=== PATIENT | female | born 1955 | race Caucasian/White ===

== ENCOUNTER 2025-06-08 17:01 | Inpatient (IN) | payer OTHER ==
[~2025-06-08] VITALS: Ht 182.9 cm; Wt 98.8 kg
--- NOTE | 2025-06-08 17:21 | ED.PDOC ---
History of present illness HPI Comments 70y male to female transgender individual presents to the ED via EMS for chief complaint of altered mental status and hyperglycemia. EMS notes pt lives with family and found pt laying on the floor unresponsive for unknown time and called EMS to the scene. EMS arrived on scene and noted pt was in Kussmaul respirations and responsive only to deep sternal rub. EMS checked vitals and Accu check with noted pt at 88% on room air and pt was placed on 02 . EMS did accu check and states it read HIGH x 2. EMS established IV and pt was given IV fluids en route to the ED. Pt now in the ED, noted to be sleeping with noted Kussmaul respirations, not responding verbally and not following commands. Pt has noted history of DM. Pt has noted vitals in the ED of heart rate of 120, RR 30 but otherwise stable vitals including 02 sat of 97% on room air, BP 105/61 and temp of 98.7 F. 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 Allergies: Coded Allergies: Ibuprofen (Verified Allergy, Unknown, 06/08/25) Information Source: Emergency Med Personnel, Past Medical Record Mode of Arrival: EMS Past Medical History PAST MEDICAL HISTORY: DM, High Lipids Past Medical History (Other): Bladder cancer status post chemotherapy, unknown if in remission Surgical History (Other): Spine surgery, male to female transgender surgery [employer]ICE [employer]OCKEY History: Unknown Family History Family History: Unknown Social History Smoker: Non-Smoker Alcohol: Denies ETOH Use Drugs: Denies Drug Use Lives In: Home Constitutional: denies: chills, diaphoresis, fatigue, fever, malaise, sweats, weakness, others EENTM: denies: blurred vision, double vision, ear bleeding, ear discharge, ear drainage, ear pain, ear ringing, eye pain, eye redness, hearing loss, mouth pain, mouth swelling, nasal discharge, nose bleeding, nose congestion, nose pain, photophobia, tearing, throat pain, throat swelling, voice changes, others Respiratory: denies: cough, hemoptysis, orthopnea, SOB at rest, shortness of breath, SOB with excertion, stridor, wheezing, others Cardiovascular: denies: chest pain, dizzy spells, diaphoresis, Dyspnea on exertion, edema, irregular heart beat, left arm pain, lightheadedness, palpitations, PND, syncope, others Gastrointestinal: denies: abdomen distended, abdominal pain, blood streaked bowels, constipated, diarrhea, dysphagia, difficulty swallowing, hematemesis, melena, nausea, poor appetite, poor fluid intake, rectal bleeding, rectal pain, vomiting, others Genitourinary: denies: abnormal vagina bleeding, burning, dyspareunia, dysuria, flank pain, frequency, hematuria, incontinence, pain, , vagina dischar ge, urgency, others Neurological: denies: dizziness, fainting, headache, left sided numbness, left sided weakness, numbness, paresthesia, pre-existing deficit, right sided numbness, right sided weakness, seizure, speech problems, tingling, tremors, weakness, others Musculoskeletal: denies: back pain, gout, joint pain, joint swelling, muscle pain, muscle stiffness, neck pain, others Integumetry: denies: bruises, change in color, change in hair/nails, dryness, laceration, lesions, lumps, rash, wounds, others Allergic/Immunocompromised: denies: Difficulty Healing, Frequent Infections, Hives, Itching, others Hematologic/Lymphatic: denies: anemia, blood clots, easy bleeding, easy bruising, swollen glands, others Endocrine: denies: excessive hunger, excessive sweating, excessive thirst, excessive urination, flushing, intolerance to cold, intolerance to heat, unexplained weight gain, unexplained weight loss, others Psychiatric: denies: anxiety, bipolar disorder, depression, hopeless, panic disorder, schizophrenia, sleepless, suicidal, others Unable to Obtain due to: Altered Mental Status (Comprehensive systems review unobtainable due to patient's current altered mental status and absence of family) Physical Exam General Appearance: Other (Lethargic) HEENT: Other (Pupils reactive to light and symmetric, dry mucous membranes) Neck: Full Range of Motion, Normal Inspection, Supple Respiratory: Lungs Clear, Other (Kussmaul respirations) Cardiovascular: No Edema, No JVD, Tachycardia Breast Exam: Deferred Gastrointestinal: Non Tender, Soft Genitalia: Deferred Pelvic: Deferred Rectal: Deferred Extremities: Normal inspection, Normal range of motion, Non-tender, No pedal edema Neurologic: Other (Withdraws from painful stimulus, does not open eyes, does not follow commands or verbalize) Cerebellar Function: NOT DONE Reflexes: NOT DONE Skin: Dry, Normal Color, Warm Lymphatic: NOT DONE Was a procedure done? Was a procedure done?: No EKG EKG : Comments Sinus rhythm, rate 98, normal KS and QRS intervals, QTC prolonged at 523, occasional PACs, normal axis, normal QRS, nonspecific T change. Differential Diagnosis (DM) Differential Diagnosis: Dehydration, Diabetic Coma, DKA, Electrolyte Abnormality, Encephalopathy, Hyperglycemia, Hyperosmolar State, UTI Other Differential Diagnosis Ca, TIA, intracranial hemorrhage, C-spine injury, among others X-Ray, Labs, Meds, VS Vital Signs Date Time Temp Pulse Resp B/P (MAP) Pulse Ox O2 Delivery O2 Flow Rate FiO2 06/08/25 19:11 20 97 Room Air* 0 21 06/08/25 18:30 Room Air* 0 21 06/08/25 18:30 98.7 93 21 105/34 (57) 99 98.7 06/08/25 17:45 98.7 84 25 99/35 (56) 97 98.7 06/08/25 17:06 98.7 120 30 105/61 (76) 97 98.7 Lab Test 06/08/25 18:55 06/08/25 18:40 06/08/25 17:53 06/08/25 17:44 Range/Units Troponin I High Sensitivity 1308 *H 984 *H </=34 ng/L Urine Color Light-yellow Yellow Urine Clarity Clear Clear Urine pH 5.0 5.0-9.0 Urine Specific Warner 1.020 1.001-1.035 Urine Protein Trace H Negative Urine Ketones 3+ H Negative Urine Blood 1+ H Negative /uL Urine Nitrite Negative Negative Urine Bilirubin Negative Negative Urine Urobilinogen Normal Negative mg/dL Urine Leukocyte Esterase Negative Negative /uL Urine RBC 1 0 - 4 /hpf Urine Microscopic WBC 1 0-5 /HPF Urine Squamous Epithelial Cells Few <5 /hpf Urine Bacteria None seen None Seen /hpf Urine Hyaline Casts Few 0 - 2 /lpf Urine Mucus Few None Seen Urine Glucose 4+ H Normal mg/dL White Blood Count 26.7 H 4.4-10.8 10^3/uL Red Blood Count 4.45 4.0-5.20 10^6/uL Hemoglobin 13.3 12.2-16.2 g/dL Hematocrit 47.5 H 36.0-46.0 % Mean Corpuscular Volume 106.8 H 80.0-100.0 fL Mean Corpuscular Hemoglobin 30.0 28.0-32.0 pg Mean Corpuscular Hemoglobin Concent 28.1 L 32.0-36.0 g/dL Red Cell Distribution Width 15.9 H 11.8-14.3 % Platelet Count 329 140-450 10^3/uL Mean Platelet Volume 10.2 6.9-10.8 fL Neutrophils (%) (Auto) 37.0-80.0 % Lymphocytes (%) (Auto) 10.0-50.0 % Monocytes (%) (Auto) 0.0-12.0 % Basophils (%) (Auto) 0.0-2.0 % Neutrophils # (Auto) 1.6-8.6 10 ^3/uL Lymphocytes # (Auto) 0.4-5.4 10 ^3/uL Monocytes # (Auto) 0-1.3 10 ^3/uL Differential Total Cells Counted 100.0 100 Neutrophils % (Manual) 70 37.0-80.0 Band Neutrophils % (Manual) 11 Lymphocytes % (Manual) 10 10.0-50.0 Monocytes % (Manual) 9 0-12 Eosinophils % (Manual) 0 0-7 Basophils % (Manual) 0 0.0-2.0 Metamyelocytes % (manual) 0 Myelocytes % (Manual) 0 Promyelocytes % (Manual) 0 Blast Cells % (Manual) 0 Reactive Lymphocytes 0 Platelet Estimate Adequate Anisocytosis (manual) Slight Macrocytosis Moderate Sodium Level 125 L 136-145 mmol/L Potassium Level 7.2 *H 3.5-5.1 mmol/L Chloride Level 87 L 98-107 mmol/L Carbon Dioxide Level < 10 *L 20-31 mmol/L Anion Gap 28.24611 H 5-15 Blood Urea Nitrogen 47 H 9-23 mg/dL Creatinine 3.14 H 0.550-1.02 mg/dL Glomerular Filtration Rate Calc 15 >90 mL/min BUN/Creatinine Ratio 15.0 10.0-20.0 Serum Glucose 1233 *H 74-106 mg/dL Serum Osmolality 376 H 278-298 mOsm/kg Lactic Acid Level 5.5 *H 0.4-2.0 mmol/L Calcium Level 9.1 8.7-10.4 mg/dL Phosphorus Level 15.2 H 2.4-5.1 mg/dL Magnesium Level 2.7 H 1.6-2.6 mg/dL Total Bilirubin 0.2 0.2-1.0 mg/dL Aspartate Amino Transferase (AST) 67 H 13-40 U/L Alanine Aminotransferase (ALT) 68 H 7-40 U/L Alkaline Phosphatase 133 H 46-116 U/L B-Type Natriuretic Peptide 179.92 0-100 pg/mL Total Protein 6.7 5.7-8.2 g/dL Albumin 4.5 3.2-4.8 g/dL Beta-Hydroxybutyric Acid > 4.500 H < 0.4 mmol/L POC Glucose > 600 *H 70-106 mg/dl Test 06/08/25 17:15 Range/Units Blood Gas Specimen Type Arterial Blood Gas Sample Site Right radial Blood Gas Patient Temperature 37.0 Arterial Blood Date Drawn [id number] Arterial Blood pH 6.946 *L 7.350-7.450 Arterial Blood Partial Pressure CO2 < 14.1 *L 32.0-45.0 mmHg Arterial Blood Partial Pressure O2 124.1 H 83.0-108.0 mmHg Arterial Blood Oxygen Saturation 96.8 94.0-98.0 % Arterial Blood Oxyhemoglobin 95.4 94.0-98.0 % Arterial Blood Carboxyhemoglobin 0.8 0.5-1.5 % Arterial Blood Methemoglobin 0.6 0.0-1.5 % Abel Test Modified Blood Gas Total Hemoglobin 13.70 12.0-16.0 g/dL Blood Gas Modality Room air FiO2 % 21.0 Blood Gas Critical Value Read Back Yes Blood Gas Notified Whom xiomara Doshi md Blood Gas Notified Time [id number] Blood Gas Notified By haylee Scanlon rrt Current Medications Medications (Trade) Dose Ordered Sig/Elizabeth Route Start Time Stop Time Status Last Admin Insulin Human Regular (InsuLIN R) 10 units ONCE ONCE IV 06/08/25 17:15 06/08/25 17:16 DC 06/08/25 17:45 Sodium Chloride 1,000 ml @ 1,000 mls/hr Q1H ONCE IV 06/08/25 17:15 06/08/25 18:14 DC 06/08/25 17:45 Insulin Human (Reg)/Sodium Chloride 100 ml @ 0.5 mls/hr Q24H IV 06/08/25 17:45 06/08/25 19:05 Diagnostic Test (Pha) (Accu-Chek Comfort Curve T) 1 strip Q90MIN 06/08/25 18:00 06/08/25 18:53 Insulin Glargine (Lantus) 15 units ONCE ONCE SC 06/08/25 17:45 06/08/25 17:46 DC 06/08/25 17:49 Lorazepam (Ativan Inj) 1 mg ONCE ONCE IV 06/08/25 18:15 06/08/25 18:16 DC 06/08/25 18:12 Diphenhydramine HCl (Benadryl Injection) 25 mg ONCE ONCE IV 06/08/25 18:15 06/08/25 18:16 DC 06/08/25 18:12 Calcium Gluconate/ Sodium Chloride 50 ml @ 100 mls/hr Q30M IV 06/08/25 19:00 06/08/25 19:59 06/08/25 19:30 Albuterol (Ventolin Medneb) 20 mg ONCE ONCE NEB 06/08/25 19:00 06/08/25 19:01 DC 06/08/25 19:11 Sodium Bicarbonate 100 ml ONCE ONCE IV 06/08/25 19:00 06/08/25 19:01 DC 06/08/25 19:25 PROCEDURE(s): HWOCT - HEAD WITHOUT CONTRAST REASON: aloc ORDER NUMBER(s): [id number], ACCESSION NUMBER(s): [id number] EXAM: CT HEAD WITHOUT CONTRAST INDICATION: aloc TECHNIQUE: CT of the head without intravenous contrast. Radiation Dose : 1. Head: CT Dose: CTDI volume is 33 mGy. Dose-length product is 1657 mGy* cm The dose indicators for CT are the volume Computed Tomography (CT) Dose Index (CTDIvol) and the Dose Length Product (DLP), and are measured in units of mGy and mGy-cm, respectively. These indicators are not patient dose, but values generated from the CT scanner acquisition factors. The report includes radiation exposure data for exposures received during this examination. COMPARISON: None FINDINGS: There is no evidence of acute intracranial hemorrhage, extra-axial collection, mass effect, midline shift, herniation or hydrocephalus. The ventricles, sulci and cisterns are age appropriate. The umana-white differentiation is intact. Patchy periventricular and subcortical white matter hypoattenuation is nonspecific but may be related to small vessel ischemic disease. The visualized paranasal sinuses and mastoid air cells are clear. The surrounding soft tissues and osseous structures are unremarkable. IMPRESSION: 1. No acute intracranial abnormality. Radiation optimization: All CT scans at this facility use at least one of these dose optimization techniques: automated exposure control mA and/or kV adjustment per patient size (includes targeted exams where dose is matched to clinical indication) or iterative reconstruction. EDURE(s): CS2 - CERVICAL WITHOUT CONTRAST REASON: aloc found down ORDER NUMBER(s): [id number], ACCESSION NUMBER(s): [id number] EXAM: CT CERVICAL WITHOUT CONTRAST INDICATION: aloc found down EXAM DATE: 06/08/2025 05:21 PM COMPARISON: None TECHNIQUE: Multiple axial CT images of the cervical spine were obtained using bone algorithm. Axial and coronal reformatting was done. Bone and soft tissue windows were reviewed. Radiation Dose Information: CT Dose: CTDI volume is 25.59 mGy. Dose-length product is 710.86 mGy*cm Findings: There is no evidence of an acute fracture or spondylolisthesis. The vertebral body heights are well-maintained. The craniocervical junction and dens are intact. No spinal canal stenosis. There is a normal cervical lordosis. The thyroid gland is unremarkable. The lung apices demonstrate no acute abnormality. The paraspinal and neck soft tissues appear within normal limits. C2-3: Normal C3-4: Normal C4-5: Normal C5-6: Normal C6-7: Normal C7-T1: Normal Impression: 1. No evidence of an acute fracture. EDURE(s): CXR1 - CHEST XRAY 1 VIEW REASON: aloc hypoxia ORDER NUMBER(s): [id number], ACCESSION NUMBER(s): [id number] CHEST RADIOGRAPH Indication: aloc hypoxia Technique: Single frontal view of the chest was obtained Comparison: None FINDINGS: Lines and Tubes: None Lungs: No focal consolidation. Pleura: No effusion. No pneumothorax. Cardiomediastinal contours: Unremarkable Bones: No acute osseous abnormality. IMPRESSION: 1. No acute cardiopulmonary disease. HS:Y X-Ray, Labs, Meds, VS Comment 70-year-old male to female transgender individual with a history of diabetes, dyslipidemia and bladder cancer brought in by EMS from home with altered mental status, found to be hyperglycemic Vitals remarkable for heart rate 120, respiratory rate 30 Exam remarkable for lethargy, only withdraws from painful stimulus, tachycardic with Kussmaul respirations Rhythm strip independently interpreted by me: Sinus tach, rate 120, no ectopy. CT head, CT C-spine and chest x-ray unremarkable Labs remarkable for blood gas showing pH 6.946, pCO2 less than 14, CBC showing WBC 26.7, CMP showing sodium 125, potassium 7.2, chloride 87, CO2 less than 10, BUN 47, creatinine 3.14, glucose 1233, lactate 5.5, serial troponins 984 and 1308, beta hydroxybutyrate greater than 4.5 Patient treated with the following in the ED: 1 L 0.9 normal saline IV bolus, insulin 10 units IV, then placed on DKA IV fluid and insulin drip protocol, vancomycin and cefepime IV, sodium bicarb calcium gluconate IV, albuterol 20 mg nebulized, IV heparin per protocol Case discussed with Dr. Moore at [facility], who agreed the patient is not stable for transfer and authorized us to admit the patient here. Authorization [id number] Time of 1ST Reevaluation: 19:47 Reevaluation 1ST: Improved Patient Education/Counseling: Pt Unresponsive Family Education/Counseling: Diagnosis, Treatment SEPSIS Sepsis Screen SEPSIS EXCLUSION NOTE: Sepsis Exclusion Note: Patient presents with SIRS criteria, but the SIRS response is attributed to [DKA, acute renal failure ], not a suspected infection. Sepsis bundle is not initiated at this time, due to this reason. Further management will focus on the treatment of the above condition (s). Physician Orders Blood Culture (06/08/25 17:09) Abg W/ Co-Ox (06/08/25 17:09) Head Without Contrast (06/08/25 17:09) Cervical Without Contrast (06/08/25 17:09) Chest Xray 1 View (06/08/25 17:09) Troponin-I Hs (06/08/25 20:09) Insulin Drip Protocol (06/08/25 ) Sodium Chloride 0.9% (06/08/25 17:45) Sodium Chloride 0.9% (06/08/25 21:45) Sodium Chloride 0.9% (06/08/25 23:45) Insulin Drip 100 Unit/100ml (Myxredlin 1 (06/08/25 17:45) Dextrose 50% Syringe (06/08/25 17:45) Glucose Blood (Accu-Chek Comfort Curve T (06/08/25 18:00) Basic Metabolic Panel (06/08/25 23:31) Basic Metabolic Panel (06/09/25 05:31) Basic Metabolic Panel (06/09/25 11:31) Neurological Assessment (06/08/25 17:31) Vs/Hemodynamics .PER UNIT PROTOCOL (06/08/25 17:31) Insulin Lantus (Glargine) (Lantus) (06/09/25 10:00) Calcium Gluc 1,000mg/50ml-Ns (06/08/25 19:00) Electrocardigram (06/08/25 19:42) Vancomycin 1gm/200ml Pm (06/08/25 19:45) Cefepime 1gm/ 50ml (Maxipime 1gm/50ml) (06/08/25 22:00) Notify Md If Map <65 Or Bp<90 (06/08/25 19:43) If Map<65 Start Vasopressor (06/08/25 19:43) Sepsis Reassesment After Fluid (06/08/25 20:43) Platelet Monitoring (06/08/25 19:49) Heparin Per Standardized Proce (06/08/25 19:49) Discontinue All Im Injections (06/08/25 19:49) Heparin Sodium (Porcine) (06/08/25 20:00) Heparin Drip/D5w 100units/Ml (06/08/25 20:00) Stat Ekg For Chest Pain (06/08/25 19:49) *[facility] (06/08/25 19:50) Vital Signs Date Time Temp Pulse Resp B/P (MAP) Pulse Ox O2 Delivery O2 Flow Rate FiO2 06/08/25 19:11 20 97 Room Air* 0 21 06/08/25 18:30 Room Air* 0 21 06/08/25 18:30 98.7 93 21 105/34 (57) 99 98.7 06/08/25 17:45 98.7 84 25 99/35 (56) 97 98.7 06/08/25 17:06 98.7 120 30 105/61 (76) 97 98.7 Laboratory Tests Test 06/08/25 17:53 Lactic Acid Level 5.5 mmol/L (0.4-2.0) *H White Blood Count 26.7 10^3/uL (4.4-10.8) H Medications Medications Dose Ordered Sig/Elizabeth Route Start Time Stop Time Status Last Admin Dose Admin Albuterol 20 mg ONCE ONCE NEB 06/08/25 19:00 06/08/25 19:01 DC 06/08/25 19:11 Calcium Gluconate/ Sodium Chloride 50 ml @ 100 mls/hr Q30M IV 06/08/25 19:00 06/08/25 19:59 06/08/25 19:30 Diagnostic Test (Pha) 1 strip Q90MIN 06/08/25 18:00 06/08/25 18:53 Diphenhydramine HCl 25 mg ONCE ONCE IV 06/08/25 18:15 06/08/25 18:16 DC 06/08/25 18:12 Insulin Glargine 15 units ONCE ONCE SC 06/08/25 17:45 06/08/25 17:46 DC 06/08/25 17:49 Insulin Human (Reg)/Sodium Chloride 100 ml @ 0.5 mls/hr Q24H IV 06/08/25 17:45 06/08/25 19:05 Insulin Human Regular 10 units ONCE ONCE IV 06/08/25 17:15 06/08/25 17:16 DC 06/08/25 17:45 Lorazepam 1 mg ONCE ONCE IV 06/08/25 18:15 06/08/25 18:16 DC 06/08/25 18:12 Sodium Bicarbonate 100 ml ONCE ONCE IV 06/08/25 19:00 06/08/25 19:01 DC 06/08/25 19:25 Sodium Chloride 1,000 ml @ 1,000 mls/hr Q1H ONCE IV 06/08/25 17:15 06/08/25 18:14 DC 06/08/25 17:45 Departure 1 Departure Time of Disposition: 19:48 Impression: Primary Impression: DKA (diabetic ketoacidosis) Additional Impressions: Acute renal failure Electrolyte imbalance Non-STEMI (non-ST elevated myocardial infarction) Disposition: 09 ADMITTED INPATIENT Admit to: ICU Condition: Critical Critical Care Note Critical Care Time?: Yes (1 hr-critical care time only) Critical care comment: Critical care time including multiple bedside re-evaluations, review of lab and imaging studies, and discussion of the case with the admitting provider. Patient is high risk for neurologic, respiratory, hemodynamic and/or metabolic decompensation. Stability Stability form required: No Heart Score Heart Score: Heart Score Response (Comments) Value History N/A 0 EKG N/A 0 Age N/A 0 Risk Factors N/A 0 Troponin N/A 0 Total 0 I personally scribed for LUIGI DOSHI MD ([facility]) on 06/08/25 at 17:21. Electronically submitted by Jonathan Larry ([facility]). I personally scribed for LUIGI DOSHI MD ([email or web address]) on 06/08/25 at 17:55. Electronically submitted by Jonathan Larry ([facility]). LUIGI DOSHI MD Jun 08, 2025 17:21
[2025-06-08] MEDS: SODIUM CHLORIDE 0.9% 1,000 ML IV ONE (17:45)
[2025-06-08] MEDS: InsuLIN REG 1unit/0.01ml Soln (100units/ml) IV ONE (17:45)
[2025-06-08] MEDS ORDERED: DEXTROSE (50%) 50ML SYRG IV PRN ×3 (17:45→22:45)
[2025-06-08] MEDS: INSULIN LANTUS (GLARGINE) 1 /0.01ml (100units/ml) SC ONE (17:49)
--- NOTE | 2025-06-08 18:04 | DVH ---
EXAM: CT HEAD WITHOUT CONTRAST INDICATION: aloc TECHNIQUE: CT of the head without intravenous contrast. Radiation Dose : 1. Head: CT Dose: CTDI volume is 33 mGy. Dose-length product is 1657 mGy*cm The dose indicators for CT are the volume Computed Tomography (CT) Dose Index (CTDIvol) and the Dose Length Product (DLP), and are measured in units of mGy and mGy-cm, respectively. These indicators are not patient dose, but values generated from the CT scanner acquisition factors. The report includes radiation exposure data for exposures received during this examination. COMPARISON: None FINDINGS: There is no evidence of acute intracranial hemorrhage, extra-axial collection, mass effect, midline s hift, herniation or hydrocephalus. The ventricles, sulci and cisterns are age appropriate. The umana-white differentiation is intact. Patchy periventricular and subcortical white matter hypoattenuation is nonspecific but may be related to small vessel ischemic disease. The visualized paranasal sinuses and mastoid air cells are clear. The surrounding soft tissues and osseous structures are unremarkable. IMPRESSION: 1. No acute intracranial abnormality. Radiation optimization: All CT scans at this facility use at least one of these dose optimization angie hniques: automated exposure control mA and/or kV adjustment per patient size (includes targeted exam s where dose is matched to clinical indication) or iterative reconstruction.
[2025-06-08] MEDS: LORazepam 2MG/ML-1ML VIAL IV ONE (18:12)
[2025-06-08] MEDS: diphenhdrAMINE HCL 50 MG/1 ML VL IV ONE (18:12)
--- NOTE | 2025-06-08 18:13 | DVH ---
CHEST RADIOGRAPH Indication: aloc hypoxia Technique: Single frontal view of the chest was obtained Comparison: None FINDINGS: Lines and Tubes: None Lungs: No focal consolidation. Pleura: No effusion. No pneumothorax. Cardiomediastinal contours: Unremarkable Bones: No acute osseous abnormality. IMPRESSION: 1. No acute cardiopulmonary disease. HS:Y
[2025-06-08 18:20] LABS: Hematocrit 47.5 % (36.0-46.0); Hemoglobin 13.3 g/dL (12.2-16.2); Mean Corpuscular Hemoglobin 30.0 pg (28.0-32.0); Mean Corpuscular Volume 106.8 fL (80.0-100.0)
--- NOTE | 2025-06-08 18:20 | DVH ---
EXAM: CT CERVICAL WITHOUT CONTRAST INDICATION: aloc found down EXAM DATE: 06/08/2025 05:21 PM COMPARISON: None TECHNIQUE: Multiple axial CT images of the cervical spine were obtained using bone algorithm. Axial a nd coronal reformatting was done. Bone and soft tissue windows were reviewed. Radiation Dose Information: CT Dose: CTDI volume is 25.59 mGy. Dose-length product is 710.86 mGy*cm Findings: There is no evidence of an acute fracture or spondylolisthesis. The vertebral body heights are well-m aintained. The craniocervical junction and dens are intact. No spinal canal stenosis. There is a normal cervical lordosis. The thyroid gland is unremarkable. The lung apices demonstrate no acute abnormality. The paraspinal a nd neck soft tissues appear within normal limits. C2-3: Normal C3-4: Normal C4-5: Normal C5-6: Normal C6-7: Normal C7-T1: Normal Impression: 1. No evidence of an acute fracture.
[2025-06-08 18:35] LABS: Magnesium 2.7 mg/dL (1.6-2.6)
[2025-06-08 18:37] LABS: Albumin 4.5 g/dL (3.2-4.8); Anion Gap 28.00001 (5-15); BUN/Creatinine Ratio 15.0 (10.0-20.0); Calcium 9.1 mg/dL (8.7-10.4); Total Protein 6.7 g/dL (5.7-8.2)
[2025-06-08 18:48] LABS: Alanine Aminotransferase 68 U/L (7-40); Alkaline Phosphatase 133 U/L (46-116); Anisocytosis Slight; Bilirubin, Total 0.2 mg/dL (0.2-1.0); Blood Urea Nitrogen 47 mg/dL (9-23); Carbon Dioxide < 10 mmol/L (20-31); Chloride 87 mmol/L (98-107); Glucose 1233 mg/dL (74-106); Lactic Acid w/Reflex 5.5 mmol/L (0.4-2.0); Macrocytosis Moderate; Potassium 7.2 mmol/L (3.5-5.1); Sodium 125 mmol/L (136-145); Total Cells Counted 100.0 (100)
[2025-06-08] MEDS: ACCU-CHEK COMFORT CURVE STRIP VI SCH ×2 (18:53→22:30)
[2025-06-08 18:59] LABS: Urine Protein, UAD TRACE (Negative)
[2025-06-08] MEDS: INSULIN DRIP 100 UNIT/100ML 100 ML IV SCH ×3 (19:05→22:39)
[2025-06-08] MEDS: ALBUTEROL SULF 2.5 MG/0.5ML(0.5%) NEB SOLN NEB ONE (19:11)
[2025-06-08] MEDS: SODIUM BICARB 8.4% 50Meq/50ml SYR Vial IV ONE ×2 (19:25→22:43)
[2025-06-08] MEDS: CALCIUM GLUC 1,000mg/50ml-NS 50 ML IV SCH (19:30)
--- NOTE | 2025-06-08 19:50 | ECG ---
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
[2025-06-08] MEDS ORDERED: MORPHINE SULFATE INJ 2 MG/ml SYRG IV PRN (20:00)
[2025-06-08] MEDS ORDERED: NITROGLYCERIN 0.4 MG SL TAB SL PRN (20:00)
[2025-06-08] MEDS ORDERED: ONDANSETRON HCL 4 MG/2 ML VIAL IV PRN (20:15)
[2025-06-08] MEDS: HEPARIN SODIUM (PORCINE) 5000 UNITS/ML 1ML VIAL IV ONE (20:52)
[2025-06-08] MEDS: SODIUM CHLORIDE 0.9% 1,000 ML IV SCH ×2 (21:00→22:52)
[2025-06-08 21:02] LABS: INR 1.08 (0.9-1.15); Partial Thromboplastin Time 36.2 SEC (24.5-34.5); Prothrombin Time 11.4 sec (9.3-11.8)
[2025-06-08] MEDS: HEPARIN DRIP/D5W 100UNITS/ML 250 ML IV SCH (21:10)
[2025-06-08] MEDS: CEFEPIME 1GM/ 50ML 50 ML IV ONE (22:22)
[2025-06-08] MEDS: VANCOMYCIN 1GM/200ML PM 200 ML IV ONE (22:35)
[2025-06-08 23:54] LABS: Chloride 103 mmol/L (98-107); Potassium 4.0 mmol/L (3.5-5.1); Sodium 136 mmol/L (136-145)
[2025-06-08 23:55] LABS: Anion Gap 23.00001 (5-15); Calcium 7.2 mg/dL (8.7-10.4)
[2025-06-08 23:57] LABS: Carbon Dioxide < 10 mmol/L (20-31)
[2025-06-08 23:59] LABS: BUN/Creatinine Ratio 12.6 (10.0-20.0)
[2025-06-09] VITALS (50 sets, daily range): BP systolic 95–156; BP diastolic 48–76; PULSE 100–110; RESP 12–33; TEMP 96.5–100.3; O2SAT 78–100
[2025-06-09 00:09] LABS: Blood Urea Nitrogen 33 mg/dL (9-23)
[2025-06-09 00:10] LABS: Glucose 835 mg/dL (74-106)
[2025-06-09] MEDS: HALOPERIDOL LACTATE 5 MG/ML INJ VIAL IM ONE (00:15)
[2025-06-09] MEDS: SODIUM CHLORIDE 0.9% 500 ML IV ONE (00:15)
[2025-06-09] MEDS ORDERED: InsuLIN REG 1unit/0.01ml Soln (100units/ml) SC PRN ×2 (01:00)
[2025-06-09] MEDS: INSULIN DRIP 100 UNIT/100ML 100 ML IV SCH (01:04)
[2025-06-09] MEDS: SODIUM CHLORIDE 0.9% 1,000 ML IV SCH (01:26)
[2025-06-09] MEDS: SODIUM BICARB 8.4% 50Meq/50ml SYR Vial IV ONE ×2 (01:26→01:49)
[2025-06-09] MEDS: SODIUM BICARB 50mEq/50ml Vial 100 ML in SOD CHL 0.45% 1,000 ML IV ONE (01:51)
--- NOTE | 2025-06-09 03:40 | DVHHP2 ---
History of Present Illness Reason for Visit: Altered mental status History of Present Illness 70-year-old female presents for evaluation of altered mental status. Patient was noted to be acting erratic and altered by family members so EMS was called. On arrival patient was found with Kussmaul respirations and responsive to deep sternal rub. On the feel patient's blood sugar was reading high. No further history could be obtained at the moment. Past Medical History Dyslipidemia, cancer and diabetes mellitus Past Surgical History Spine surgery, male to female transgender surgery Family History Noncontributory Smoke: No ALCOHOL: none Drugs: None Lives: with Family Review of Systems Review of Systems Review of systems are currently negative otherwise addressed in HPI. Allergies: Coded Allergies: Ibuprofen (Verified Allergy, Unknown, 06/08/25) Medications Current Medications Medications Dose Ordered Sig/Elizabeth Route Start Time Stop Time Status Last Admin Dose Admin Sodium Chloride 1,000 ml @ 150 mls/hr Q6H40M IV 06/08/25 23:45 06/09/25 01:26 150 MLS/HR Insulin Glargine 15 units DAILY SC 06/09/25 10:00 Cefepime HCl 50 ml @ 12.5 mls/hr DAILY IV 06/09/25 10:00 Heparin Sodium/ Dextrose 250 ml @ 10 mls/hr Q24H IV 06/08/25 20:00 06/08/25 21:10 10 MLS/HR Nitroglycerin 0.4 mg Q5MINP PRN SL 06/08/25 20:00 Morphine Sulfate 2 mg Q30M PRN IV 06/08/25 20:00 Ondansetron HCl 4 mg Q4HP PRN IV 06/08/25 20:15 Diagnostic Test (Pha) 1 strip Q90MIN 06/08/25 21:00 06/09/25 01:33 1 STRIP Dextrose 50 ml UD PRN IV 06/08/25 22:45 Insulin Human (Reg)/Sodium Chloride 100 ml @ 2 mls/hr Q24H IV 06/09/25 01:00 06/09/25 02:04 26 MLS/HR Insulin Human Regular 2 units ONCE PRN SC 06/09/25 01:00 Insulin Human Regular 4 units ONCE PRN SC 06/09/25 01:00 Exam Vital Signs Vital Signs Date Time Temp Pulse Resp B/P (MAP) Pulse Ox O2 Delivery O2 Flow Rate FiO2 06/09/25 01:52 102 24 98 Room Air* 0 21 06/09/25 01:52 96.5 111/49 (69) 96.5 Exam Gen: 70-year-old female in mild distress Skin: Warm, dry, normal color and texture, no rash. HEENT: Normocephalic atraumatic, mucous membranes moist and pink. Neck: Cervical and supraclavicular nodes normal without enlargement, trachea is midline, thyroid gland is normal without masses. Pulmonary: Clear to auscultation and percussion bilaterally. Cardiac: Regular rate and rhythm. No murmur Abdomen: Soft, nontender, nondistended, bowel sounds present all 4 quadrants, no guarding, no rigidity, no organomegaly. Extremities: No cyanosis, clubbing, no edema Neuro: Lethargic Labs/Xrays GE / SEX: 70 / F ADM STATUS: REG ER SERVICE 08 ORDERING PHYSICIAN: LUIGI SR MD PROCEDURE(s): CXR1 - CHEST XRAY 1 VIEW REASON: aloc hypoxia ORDER NUMBER(s): [id number], ACCESSION NUMBER(s): [id number] CHEST RADIOGRAPH Indication: aloc hypoxia Technique: Single frontal view of the chest was obtained Comparison: None FINDINGS: Lines and Tubes: None Lungs: No focal consolidation. Pleura: No effusion. No pneumothorax. Cardiomediastinal contours: Unremarkable Bones: No acute osseous abnormality. IMPRESSION: 1. No acute cardiopulmonary disease. HS:Y RING PHYSICIAN: LUIGI SR MD PROCEDURE(s): HWOCT - HEAD WITHOUT CONTRAST REASON: aloc ORDER NUMBER(s): [id number], ACCESSION NUMBER(s): [id number] EXAM: CT HEAD WITHOUT CONTRAST INDICATION: aloc TECHNIQUE: CT of the head without intravenous contrast. Radiation Dose : 1. Head: CT Dose: CTDI volume is 33 mGy. Dose-length product is 1657 mGy*cm The dose indicators for CT are the volume Computed Tomography (CT) Dose Index (CTDIvol) and the Dose Length Product (DLP), and are measured in units of mGy and mGy-cm, respectively. These indicators are not patient dose, but values generated from the CT scanner acquisition factors. The report includes radiation exposure data for exposures received during this examination. COMPARISON: None FINDINGS: There is no evidence of acute intracranial hemorrhage, extra-axial collection, mass effect, midline shift, herniation or hydrocephalus. The ventricles, sulci and cisterns are age appropriate. The umana-white differentiation is intact. Patchy periventricular and subcortical white matter hypoattenuation is nonspecific but may be related to small vessel ischemic disease. The visualized paranasal sinuses and mastoid air cells are clear. The surrounding soft tissues and osseous structures are unremarkable. IMPRESSION: 1. No acute intracranial abnormality. Radiation optimization: All CT scans at this facility use at least one of these dose optimization techniques: automated exposure control mA and/or kV adjustment per patient size (includes targeted exams where dose is matched to clinical indication) or iterative reconstruction. ATED BY: SATURNINO HERRERA MD DICTATED DATE/TIME: 06/08/251800 Labs Test 06/09/25 02:17 06/09/25 01:28 06/09/25 00:27 06/08/25 23:30 Range/Units Serum Glucose 804 *H 74-106 mg/dL POC Glucose > 600 *H 70-106 mg/dl Blood Gas Specimen Type Arterial Blood Gas Sample Site Left radial Blood Gas Patient Temperature 37.0 Arterial Blood Date Drawn [id number] Arterial Blood pH 7.133 *L 7.350-7.450 Arterial Blood Partial Pressure CO2 < 14.1 *L 32.0-45.0 mmHg Arterial Blood Partial Pressure O2 87.2 83.0-108.0 mmHg Arterial Blood Oxygen Saturation 95.6 94.0-98.0 % Arterial Blood Oxyhemoglobin 94.7 94.0-98.0 % Arterial Blood Carboxyhemoglobin 0.4 L 0.5-1.5 % Arterial Blood Methemoglobin 0.5 0.0-1.5 % Abel Test Modified Blood Gas Total Hemoglobin 13.90 12.0-16.0 g/dL Blood Gas Modality Room air FiO2 % 21.0 Blood Gas Critical Value Read Back Yes Blood Gas Notified Whom jamel Dumont np Blood Gas Notified Time [id number] Blood Gas Notified By Margarita, j, car attendant Sodium Level 136 # 136-145 mmol/L Potassium Level 4.0 # 3.5-5.1 mmol/L Chloride Level 103 # 98-107 mmol/L Carbon Dioxide Level < 10 *L 20-31 mmol/L Anion Gap 23.51950 H 5-15 Blood Urea Nitrogen 33 #H 9-23 mg/dL Creatinine 2.61 H 0.550-1.02 mg/dL Glomerular Filtration Rate Calc 19 >90 mL/min BUN/Creatinine Ratio 12.6 10.0-20.0 Calcium Level 7.2 L 8.7-10.4 mg/dL Test 06/08/25 20:42 06/08/25 18:40 06/08/25 17:53 Range/Units Lactic Acid Level 4.7 *H 0.4-2.0 mmol/L Troponin I High Sensitivity 1054 *H </=34 ng/L Urine Color Light-yellow Yellow Urine Clarity Clear Clear Urine pH 5.0 5.0-9.0 Urine Specific Harrison 1.020 1.001-1.035 Urine Protein Trace H Negative Urine Ketones 3+ H Negative Urine Blood 1+ H Negative /uL Urine Nitrite Negative Negative Urine Bilirubin Negative Negative Urine Urobilinogen Normal Negative mg/dL Urine Leukocyte Esterase Negative Negative /uL Urine RBC 1 0 - 4 /hpf Urine Microscopic WBC 1 0-5 /HPF Urine Squamous Epithelial Cells Few <5 /hpf Urine Bacteria None seen None Seen /hpf Urine Hyaline Casts Few 0 - 2 /lpf Urine Mucus Few None Seen Urine Glucose 4+ H Normal mg/dL White Blood Count 26.7 H 4.4-10.8 10^3/uL Red Blood Count 4.45 4.0-5.20 10^6/uL Hemoglobin 13.3 12.2-16.2 g/dL Hematocrit 47.5 H 36.0-46.0 % Mean Corpuscular Volume 106.8 H 80.0-100.0 fL Mean Corpuscular Hemoglobin 30.0 28.0-32.0 pg Mean Corpuscular Hemoglobin Concent 28.1 L 32.0-36.0 g/dL Red Cell Distribution Width 15.9 H 11.8-14.3 % Platelet Count 329 140-450 10^3/uL Mean Platelet Volume 10.2 6.9-10.8 fL Neutrophils (%) (Auto) 37.0-80.0 % Lymphocytes (%) (Auto) 10.0-50.0 % Monocytes (%) (Auto) 0.0-12.0 % Basophils (%) (Auto) 0.0-2.0 % Neutrophils # (Auto) 1.6-8.6 10 ^3/uL Lymphocytes # (Auto) 0.4-5.4 10 ^3/uL Monocytes # (Auto) 0-1.3 10 ^3/uL Differential Total Cells Counted 100.0 100 Neutrophils % (Manual) 70 37.0-80.0 Band Neutrophils % (Manual) 11 Lymphocytes % (Manual) 10 10.0-50.0 Monocytes % (Manual) 9 0-12 Eosinophils % (Manual) 0 0-7 Basophils % (Manual) 0 0.0-2.0 Metamyelocytes % (manual) 0 Myelocytes % (Manual) 0 Promyelocytes % (Manual) 0 Blast Cells % (Manual) 0 Reactive Lymphocytes 0 Platelet Estimate Adequate Anisocytosis (manual) Slight Macrocytosis Moderate Prothrombin Time 11.4 9.3-11.8 sec Prothrombin Time INR 1.08 0.9-1.15 Activated Partial Thromboplast Time 36.2 H 24.5-34.5 SEC Serum Osmolality 376 H 278-298 mOsm/kg Phosphorus Level 15.2 H 2.4-5.1 mg/dL Magnesium Level 2.7 H 1.6-2.6 mg/dL Total Bilirubin 0.2 0.2-1.0 mg/dL Aspartate Amino Transferase (AST) 67 H 13-40 U/L Alanine Aminotransferase (ALT) 68 H 7-40 U/L Alkaline Phosphatase 133 H 46-116 U/L B-Type Natriuretic Peptide 179.92 0-100 pg/mL Total Protein 6.7 5.7-8.2 g/dL Albumin 4.5 3.2-4.8 g/dL Beta-Hydroxybutyric Acid > 4.500 H < 0.4 mmol/L SEPSIS Sepsis Screen Date sepsis recognized/suspect: Jun 08, 2025 Time Sepsis recognized/suspect: 1705 Recent Procedure: No On Antibiotic Therapy: No Respiratory Rate >20: Yes Heart Rate >90: Yes Temp<36 C (96.8 F) or >38.3 C: No SBP <90 or MAP <65 mmHG: No New Acute Mental Status Change: Yes Is the patient on CPAP, BIPAP,: No Physician Orders Electrocardigram (06/08/25 19:42) Notify Md If Map <65 Or Bp<90 (06/08/25 19:43) If Map<65 Start Vasopressor (06/08/25 19:43) Sepsis Reassesment After Fluid (06/08/25 20:43) Platelet Monitoring (06/08/25 19:49) Heparin Per Standardized Proce (06/08/25 19:49) Discontinue All Im Injections (06/08/25 19:49) Heparin Drip/D5w 100units/Ml (06/08/25 20:00) Stat Ekg For Chest Pain (06/08/25 19:49) *[facility] (06/08/25 19:50) Admit (06/08/25 19:56) Nitroglycerin Sublingual (Ntrostat Subli (06/08/25 20:00) Morphine Sulfate Injection (06/08/25 20:00) Notify Md Of Changes From Base (06/08/25 19:56) B2B Managed Service Sales Exec For 24 Hours (06/08/25 19:56) Emergency Dysrhythmia Protocol (06/08/25 19:56) Rhythm Strips Once Every Shift (06/08/25 19:56) Oxygen By Nasal Cannula (06/08/25 19:56) * Cardiology Consult (06/08/25 20:01) Ondansetron Hcl (Zofran) (06/08/25 20:15) Complete Blood Count (06/09/25 04:00) Comprehensive Metabolic Panel (06/09/25 04:00) Npo (Nothing By Mouth) Diet (06/09/25 Breakfast) Echo 2d Mode Cardiac Dop (06/08/25 20:01) Condition: Unstable (06/08/25 20:01) Bedrest With Bathroom Privileg (06/08/25 20:01) Insulin Drip Protocol (06/08/25 20:10) Glucose Blood (Accu-Chek Comfort Curve T (06/08/25 21:00) Abg W/ Co-Ox (06/08/25 20:39) Heparin Per Pharmacy Protocol (06/08/25 20:47) Cefepime 1gm/ 50ml (Maxipime 1gm/50ml) (06/09/25 10:00) PTPTT (06/09/25 03:00) Dextrose 50% Syringe (06/08/25 22:45) Abg W/ Co-Ox (06/09/25 00:09) Insulin Drip 100 Unit/100ml (Myxredlin 1 (06/09/25 01:00) Insulin R (Human) (Insulin R) (06/09/25 01:00) Insulin R (Human) (Insulin R) (06/09/25 01:00) Sodium Bicarb 50meq/50ml Vial (06/09/25 01:45) Vital Signs Date Time Temp Pulse Resp B/P (MAP) Pulse Ox O2 Delivery O2 Flow Rate FiO2 06/09/25 01:52 102 24 98 Room Air* 0 21 06/09/25 01:52 96.5 101 24 111/49 (69) 95 96.5 06/09/25 00:00 100 26 125/58 (80) 96 06/08/25 23:00 95 26 125/56 (79) 98 06/08/25 22:00 96 23 109/55 (73) 96 06/08/25 21:00 97 22 120/51 (74) 98 06/08/25 20:00 97 21 101/52 (68) 99 06/08/25 20:00 97 06/08/25 19:48 98 Laboratory Tests Test 06/08/25 17:53 06/08/25 20:42 Lactic Acid Level 5.5 mmol/L (0.4-2.0) *H 4.7 mmol/L (0.4-2.0) *H White Blood Count 26.7 10^3/uL (4.4-10.8) H Medications Medications Dose Ordered Sig/Elizabeth Route Start Time Stop Time Status Last Admin Dose Admin Albuterol 20 mg ONCE ONCE NEB 06/08/25 19:00 06/08/25 19:01 DC 06/08/25 19:11 20 MG Calcium Gluconate/ Sodium Chloride 50 ml @ 100 mls/hr Q30M IV 06/08/25 19:00 06/08/25 19:59 DC 06/08/25 20:00 100 MLS/HR Cefepime HCl 50 ml @ 50 mls/hr ONCE ONCE IV 06/08/25 21:00 06/08/25 21:59 DC 06/08/25 22:22 50 MLS/HR Diagnostic Test (Pha) 1 strip Q90MIN 06/08/25 18:00 06/08/25 20:15 DC 06/08/25 20:00 1 STRIP Diagnostic Test (Pha) 1 strip Q90MIN 06/08/25 21:00 06/09/25 01:33 1 STRIP Diphenhydramine HCl 25 mg ONCE ONCE IV 06/08/25 18:15 06/08/25 18:16 DC 06/08/25 18:12 25 MG Heparin Sodium (Porcine) 4,000 units ONCE ONCE IV 06/08/25 20:00 06/08/25 20:47 DC 06/08/25 20:52 4,000 UNITS Heparin Sodium/ Dextrose 250 ml @ 10 mls/hr Q24H IV 06/08/25 20:00 06/08/25 21:10 10 MLS/HR Insulin Glargine 15 units ONCE ONCE SC 06/08/25 17:45 06/08/25 17:46 DC 06/08/25 17:49 15 UNITS Insulin Human (Reg)/Sodium Chloride 100 ml @ 0.5 mls/hr Q24H IV 06/08/25 17:45 06/08/25 20:15 DC 06/08/25 19:05 6 MLS/HR Insulin Human (Reg)/Sodium Chloride 100 ml @ 0.5 mls/hr Q24H IV 06/08/25 20:15 06/08/25 22:34 DC 06/08/25 20:44 10 MLS/HR Insulin Human (Reg)/Sodium Chloride 100 ml @ 1 mls/hr Q24H IV 06/08/25 22:45 06/09/25 00:55 DC 06/08/25 22:39 16 MLS/HR Insulin Human (Reg)/Sodium Chloride 100 ml @ 2 mls/hr Q24H IV 06/09/25 01:00 06/09/25 02:04 26 MLS/HR Insulin Human Regular 10 units ONCE ONCE IV 06/08/25 17:15 06/08/25 17:16 DC 06/08/25 17:45 10 UNITS Lorazepam 1 mg ONCE ONCE IV 06/08/25 18:15 06/08/25 18:16 DC 06/08/25 18:12 1 MG Sodium Bicarbonate 100 ml/Sodium Chloride 1,100 ml @ 100 mls/hr ONCE ONCE IV 06/09/25 01:45 06/09/25 12:44 06/09/25 01:51 100 MLS/HR Sodium Bicarbonate 50 ml ONCE ONCE IV 06/08/25 21:45 06/08/25 22:03 DC 06/08/25 22:43 50 ML Sodium Bicarbonate 50 ml ONCE ONCE IV 06/09/25 01:00 06/09/25 01:02 DC 06/09/25 01:26 50 ML Sodium Bicarbonate 100 ml ONCE ONCE IV 06/08/25 19:00 06/08/25 19:01 DC 06/08/25 19:25 100 ML Sodium Chloride 500 ml @ 500 mls/hr Q1H ONCE IV 06/09/25 00:15 06/09/25 01:14 DC 06/09/25 00:15 500 MLS/HR Sodium Chloride 1,000 ml @ 150 mls/hr Q6H40M IV 06/08/25 23:45 06/09/25 01:26 150 MLS/HR Sodium Chloride 1,000 ml @ 250 mls/hr Q4H IV 06/08/25 21:45 06/08/25 23:44 DC 06/08/25 22:52 250 MLS/HR Sodium Chloride 1,000 ml @ 500 mls/hr Q2H IV 06/08/25 17:45 06/08/25 21:44 DC 06/08/25 22:00 500 MLS/HR Sodium Chloride 1,000 ml @ 1,000 mls/hr Q1H ONCE IV 06/08/25 17:15 06/08/25 18:14 DC 06/08/25 17:45 1,000 MLS/HR Vancomycin HCl 200 ml @ 200 mls/hr ONCE ONCE IV 06/08/25 19:45 06/08/25 20:44 DC 06/08/25 22:35 200 MLS/HR Assessment/Plan Assessment/Plan Assessment Diabetic ketoacidosis NSTEMI Acute renal failure Plan Admit the patient to ICU to the hospitalist DKA protocol Continue heparin drip Cardiology consult Nephrology consult Continue treatment per orders Total critical care time excluding procedures performed this 55 minutes. Plan discussed with: Patient My Orders Orders - ORQUIDEA DUMONT Procedure Category Date Status Time Admit ADMIT 06/08/25 Transmitted 19:56 Nitroglycerin [facility] 06/08/25 In Process Sublingual (Ntrostat 20:00 Morphine Sulfate [facility] 06/08/25 In Process Injection 20:00 Notify Of Changes [facility] 06/08/25 In Process From Base 19:56 B2B Managed Service Sales Exec For [facility] 06/08/25 In Process 24 Hours 19:56 Emergency Dysrhythmia [facility] 06/08/25 In Process Protocol 19:56 Rhythm Strips Once [facility] 06/08/25 In Process Every Shift 19:56 Oxygen By Nasal RT 06/08/25 Transmitted Cannula 19:56 * Cardiology Consult CONS 06/08/25 Transmitted 20:01 Ondansetron Hcl PHA 06/08/25 In Process (Zofran) 20:15 Complete Blood Count LAB 06/09/25 Logged 04:00 Comprehensive LAB 06/09/25 Logged Metabolic Panel 04:00 Npo (Nothing By DIET 06/09/25 Transmitted Mouth) Diet Breakfast Echo 2d Mode Cardiac US 06/08/25 Logged DOP 20:01 Condition: Unstable [facility] 06/08/25 In Process 20:01 Bedrest With Bathroom [facility] 06/08/25 In Process Privileg 20:01 Abg W/ Co-Ox RT 06/08/25 Logged 20:39 Dextrose 50% Syringe PHA 06/08/25 In Process 22:45 Abg W/ Co-Ox RT 06/09/25 Logged 00:09 Insulin Drip 100 PHA 06/09/25 In Process Unit/100ml (Myxredlin 01:00 Insulin R (Human) [facility] 06/09/25 In Process (Insulin R) 01:00 Insulin R (Human) [facility] 06/09/25 In Process (Insulin R) 01:00 Sodium Bicarb [facility] 06/09/25 In Process 50meq/50ml Vial 01:45 Date of Service: Jun 08, 2025 Billing Provider: ORQUIDEA DUMONT Common Visit Codes: [id number] CARE 30-74 MIN ORQUIDEA DUMONT Jun 09, 2025 03:40
[2025-06-09] MEDS: InsuLIN REG 1unit/0.01ml Soln (100units/ml) SC ONE (03:41)
[2025-06-09 05:12] LABS: Hematocrit 45.9 % (36.0-46.0); Hemoglobin 14.5 g/dL (12.2-16.2); Mean Corpuscular Hemoglobin 29.8 pg (28.0-32.0); Mean Corpuscular Volume 94.7 fL (80.0-100.0); Nucleated Red Blood Cells % 0.0 %
[2025-06-09 05:39] LABS: Albumin 4.6 g/dL (3.2-4.8); Anion Gap 32.00001 (5-15); BUN/Creatinine Ratio 14.3 (10.0-20.0); Calcium 9.7 mg/dL (8.7-10.4); Sodium 140 mmol/L (136-145); Total Protein 7.1 g/dL (5.7-8.2)
[2025-06-09 05:41] LABS: INR 1.17 (0.9-1.15); Prothrombin Time 12.2 sec (9.3-11.8)
[2025-06-09 05:42] LABS: Partial Thromboplastin Time 125.3 SEC (24.5-34.5)
[2025-06-09 05:46] LABS: Alanine Aminotransferase 63 U/L (7-40); Alkaline Phosphatase 117 U/L (46-116); Bilirubin, Total 0.2 mg/dL (0.2-1.0); Blood Urea Nitrogen 44 mg/dL (9-23); Carbon Dioxide < 10 mmol/L (20-31); Chloride 98 mmol/L (98-107); Potassium 3.4 mmol/L (3.5-5.1)
[2025-06-09 05:49] LABS: Glucose 697 mg/dL (74-106)
[2025-06-09] MEDS: HEPARIN DRIP/D5W 100UNITS/ML 250 ML IV SCH (06:57)
[2025-06-09] MEDS: SOD CHL 0.45% 1,000 ML IV SCH (08:30)
[2025-06-09 09:51] LABS: Anion Gap 16 (5-15); Calcium 9.0 mg/dL (8.7-10.4); Carbon Dioxide 21 mmol/L (20-31)
[2025-06-09 09:56] LABS: BUN/Creatinine Ratio 17.7 (10.0-20.0)
[2025-06-09 09:57] LABS: Blood Urea Nitrogen 40 mg/dL (9-23); Chloride 111 mmol/L (98-107); Glucose 247 mg/dL (74-106); Potassium 2.7 mmol/L (3.5-5.1); Sodium 148 mmol/L (136-145)
[2025-06-09] MEDS: POTASSIUM CHL 20MEQ/100ML 100 ML IV SCH (10:30)
[2025-06-09] MEDS: CEFEPIME 1GM/ 50ML 50 ML IV SCH (10:51)
[2025-06-09] MEDS: POTASSIUM CHL 20MEQ/100ML 100 ML IV ONE (10:52)
[2025-06-09] MEDS: INSULIN LANTUS (GLARGINE) 1 /0.01ml (100units/ml) SC SCH (10:52)
--- NOTE | 2025-06-09 12:03 | DVHCONRES ---
Date Seen: Jun 09, 2025 Resident Creating Document: JOSSELIN JUNG RESDIENT History of Present Illness This is a 70-year-old female with past medical history of diabetes, bladder cancer (on radiotherapy), hypertension and dyslipidemia brought to the hospital due to altered mental status. Per patient's , yesterday 4:00 p.m. she found her on the floor upon returning from work. The last the is she was seen conscious was yesterday morning 6:00 a.m. per patient's she has been feeling sick since 4 days and reports cough, generalized weakness nausea and vomiting. Upon admission, the patient was found to have very high blood glucose, raised beta hydroxybutyric acid and metabolic acidosis. Cardiology is consulted due to raised troponin I. PMHx: Diabetes, bladder cancer, hypertension and dyslipidemia and chronic back pain Social history: Tried multiple times to reach out to the family, but could not Home medication: Insulin, losartan and atorvastatin, gabapentin, Dilaudid Patient seen and examined at the bedside. Patient is still altered, responds to voice. Allergies: Coded Allergies: Ibuprofen (Verified Allergy, Unknown, 06/08/25) Current Medications Current Medications Medications (Trade) Dose Ordered Sig/Elizabeth Route PRN Reason Start Time Stop Time Status Last Admin Sodium Chloride 1,000 ml @ 500 mls/hr Q2H IV 06/08/25 17:45 06/08/25 21:44 DC 06/08/25 22:00 Sodium Chloride 1,000 ml @ 250 mls/hr Q4H IV 06/08/25 21:45 06/08/25 23:44 DC 06/08/25 22:52 Sodium Chloride 1,000 ml @ 150 mls/hr Q6H40M IV 06/08/25 23:45 06/09/25 07:30 DC 06/09/25 06:29 Insulin Human (Reg)/Sodium Chloride 100 ml @ 0.5 mls/hr Q24H IV 06/08/25 17:45 06/08/25 20:15 DC 06/08/25 19:05 Dextrose 50 ml UD PRN IV SEE CURRENT ALGORITHM or SCALE 06/08/25 17:45 06/08/25 20:15 DC Diagnostic Test (Pha) (Accu-Chek Comfort Curve T) 1 strip Q90MIN 06/08/25 18:00 06/08/25 20:15 DC 06/08/25 20:00 Insulin Glargine (Lantus) 15 units DAILY SC 06/09/25 10:00 06/09/25 10:52 Calcium Gluconate/ Sodium Chloride 50 ml @ 100 mls/hr Q30M IV 06/08/25 19:00 06/08/25 19:59 DC 06/08/25 20:00 Cefepime HCl 50 ml @ 12.5 mls/hr DAILY IV 06/09/25 10:00 06/09/25 10:51 Heparin Sodium/ Dextrose 250 ml @ 10 mls/hr Q24H IV 06/08/25 20:00 06/09/25 05:52 DC 06/08/25 21:10 Nitroglycerin (Ntrostat Sublingual) 0.4 mg Q5MINP PRN SL FOR CHEST PAIN 06/08/25 20:00 Morphine Sulfate 2 mg Q30M PRN IV FOR CHEST PAIN 06/08/25 20:00 Ondansetron HCl (Zofran) 4 mg Q4HP PRN IV NAUSEA / VOMITING 06/08/25 20:15 Dextrose 50 ml UD PRN IV SEE CURRENT ALGORITHM or SCALE 06/08/25 20:15 06/08/25 22:38 DC Diagnostic Test (Pha) (Accu-Chek Comfort Curve T) 1 strip Q90MIN 06/08/25 21:00 06/09/25 10:45 Insulin Human (Reg)/Sodium Chloride 100 ml @ 0.5 mls/hr Q24H IV 06/08/25 20:15 06/08/25 22:34 DC 06/08/25 20:44 Dextrose 50 ml UD PRN IV SEE CURRENT ALGORITHM or SCALE 06/08/25 22:45 Insulin Human (Reg)/Sodium Chloride 100 ml @ 1 mls/hr Q24H IV 06/08/25 22:45 06/09/25 00:55 DC 06/08/25 22:39 Insulin Human (Reg)/Sodium Chloride 100 ml @ 2 mls/hr Q24H IV 06/09/25 01:00 06/09/25 08:44 Insulin Human Regular (InsuLIN R) 2 units ONCE PRN SC SEE PROTOCOL 06/09/25 01:00 Insulin Human Regular (InsuLIN R) 4 units ONCE PRN SC SEE PROTOCOL 06/09/25 01:00 Heparin Sodium/ Dextrose 250 ml @ 7 mls/hr Q24H IV 06/09/25 07:00 06/09/25 11:49 DC 06/09/25 06:57 Sodium Chloride 1,000 ml @ 200 mls/hr Q5H IV 06/09/25 07:30 06/09/25 09:00 Potassium Chloride 100 ml @ 50 mls/hr Q2H IV 06/09/25 10:30 06/09/25 16:29 06/09/25 10:30 Enoxaparin Sodium (Lovenox) 40 mg DAILY SC 06/10/25 10:00 UNV Vital Signs Vital Signs Date Time Temp Pulse Resp B/P (MAP) Pulse Ox O2 Delivery O2 Flow Rate FiO2 06/09/25 08:00 28 93 Nasal Cannula* 4 36 06/09/25 06:00 106 06/09/25 05:30 118/58 (78) 06/09/25 04:00 98.7 98.7 Physical Exam General Appearance: Alert, Oriented X3, Cooperative, No acute distress HEENT: Atraumatic, PERRLA, EOMI, dry mucous membranes Respiratory: Clear to auscultation, Normal air movement Cardiovascular: Regular rate, Normal S1, Normal S2, No murmurs, no chest wall tenderness Abdominal: Normal bowel sounds, Soft, No tenderness, No hepatospenomegaly, No masses Extremities: No clubbing, No cyanosis, No edema, Normal pulses, No tenderness/swelling Skin: No rashes, No breakdown, No significant lesion Neuro: Normal gait, Normal speech, Strength at 5/5 X4 ext, Normal tone, Sensat ion intact, Cranial nerves 3-12 NL, Reflexes 2+ Psych/Mental Status: Mental status NL, Mood NL Labs/Diagnostic Data Labs Test 06/09/25 11:50 06/09/25 10:47 06/09/25 03:23 06/09/25 03:21 Range/Units POC Glucose 184 H 70-106 mg/dl White Blood Count 18.1 #H 4.4-10.8 10^3/uL Red Blood Count 4.85 4.0-5.20 10^6/uL Hemoglobin 14.5 12.2-16.2 g/dL Hematocrit 45.9 36.0-46.0 % Mean Corpuscular Volume 94.7 # 80.0-100.0 fL Mean Corpuscular Hemoglobin 29.8 28.0-32.0 pg Mean Corpuscular Hemoglobin Concent 31.5 L 32.0-36.0 g/dL Red Cell Distribution Width 15.0 H 11.8-14.3 % Platelet Count 270 140-450 10^3/uL Mean Platelet Volume 10.2 6.9-10.8 fL Neutrophils (%) (Auto) 74.4 37.0-80.0 % Lymphocytes (%) (Auto) 23.1 10.0-50.0 % Monocytes (%) (Auto) 2.1 0.0-12.0 % Eosinophils (%) (Auto) 0.1 0.0-7.0 % Basophils (%) (Auto) 0.3 0.0-2.0 % Neutrophils # (Auto) 13.5 H 1.6-8.6 10 ^3/uL Lymphocytes # (Auto) 4.2 0.4-5.4 10 ^3/uL Monocytes # (Auto) 0.4 0-1.3 10 ^3/uL Eosinophils # (Auto) 0 0-0.8 10 ^3/uL Basophils # (Auto) 0.1 0-0.2 10 ^3/uL Nucleated Red Blood Cells 0.0 % Prothrombin Time 12.2 H 9.3-11.8 sec Prothrombin Time INR 1.17 H 0.9-1.15 Activated Partial Thromboplast Time 125.3 *H 24.5-34.5 SEC Total Bilirubin 0.2 0.2-1.0 mg/dL Aspartate Amino Transferase (AST) 115 H 13-40 U/L Alanine Aminotransferase (ALT) 63 H 7-40 U/L Alkaline Phosphatase 117 H 46-116 U/L Total Protein 7.1 5.7-8.2 g/dL Albumin 4.6 3.2-4.8 g/dL Hemoglobin A1c 10.6 H <5.7 % A1C Test 06/09/25 00:27 06/08/25 20:42 06/08/25 18:40 06/08/25 17:53 Range/Units Blood Gas Specimen Type Arterial Blood Gas Sample Site Left radial Blood Gas Patient Temperature 37.0 Arterial Blood Date Drawn [id number] Arterial Blood pH 7.133 *L 7.350-7.450 Arterial Blood Partial Pressure CO2 < 14.1 *L 32.0-45.0 mmHg Arterial Blood Partial Pressure O2 87.2 83.0-108.0 mmHg Arterial Blood Oxygen Saturation 95.6 94.0-98.0 % Arterial Blood Oxyhemoglobin 94.7 94.0-98.0 % Arterial Blood Carboxyhemoglobin 0.4 L 0.5-1.5 % Arterial Blood Methemoglobin 0.5 0.0-1.5 % Abel Test Modified Blood Gas Total Hemoglobin 13.90 12.0-16.0 g/dL Blood Gas Modality Room air FiO2 % 21.0 Blood Gas Critical Value Read Back Yes Blood Gas Notified Whom jamel Cardozo np Blood Gas Notified Time [id number] Blood Gas Notified By jamel Avila rrt Lactic Acid Level 4.7 *H 0.4-2.0 mmol/L Troponin I High Sensitivity 1054 *H </=34 ng/L Urine Color Light-yellow Yellow Urine Clarity Clear Clear Urine pH 5.0 5.0-9.0 Urine Specific [place] 1.020 1.001-1.035 Urine Protein Trace H Negative Urine Ketones 3+ H Negative Urine Blood 1+ H Negative /uL Urine Nitrite Negative Negative Urine Bilirubin Negative Negative Urine Urobilinogen Normal Negative mg/dL Urine Leukocyte Esterase Negative Negative /uL Urine RBC 1 0 - 4 /hpf Urine Microscopic WBC 1 0-5 /HPF Urine Squamous Epithelial Cells Few <5 /hpf Urine Bacteria None seen None Seen /hpf Urine Hyaline Casts Few 0 - 2 /lpf Urine Mucus Few None Seen Urine Glucose 4+ H Normal mg/dL Differential Total Cells Counted 100.0 100 Neutrophils % (Manual) 70 37.0-80.0 Band Neutrophils % (Manual) 11 Lymphocytes % (Manual) 10 10.0-50.0 Monocytes % (Manual) 9 0-12 Eosinophils % (Manual) 0 0-7 Basophils % (Manual) 0 0.0-2.0 Metamyelocytes % (manual) 0 Myelocytes % (Manual) 0 Promyelocytes % (Manual) 0 Blast Cells % (Manual) 0 Reactive Lymphocytes 0 Platelet Estimate Adequate Anisocytosis (manual) Slight Macrocytosis Moderate Serum Osmolality 376 H 278-298 mOsm/kg Phosphorus Level 15.2 H 2.4-5.1 mg/dL Magnesium Level 2.7 H 1.6-2.6 mg/dL B-Type Natriuretic Peptide 179.92 0-100 pg/mL Beta-Hydroxybutyric Acid > 4.500 H < 0.4 mmol/L Assessment Acute metabolic encephalopathy, likely due to DKA Uncontrolled diabetes type 2 with DKA NSTEMI, likely type 2 due to above Hypovolemia YESSI, possibly on CKD, baseline record not available, VMN * EKGs shows sinus tachycardia with no significant ST or T-wave changes * Trop I is raised at 1000s, downtrending Plan/Recommendation (Case discussed with Dr. Osuna) * Aspirin and atorvastatin * Discontinue permanent damage * Lovenox prophylactic dose * Check echocardiogram * In context of normal echo, the patient does not need further cardiology workup at the moment * Rest of plan Per primary team Thank you for giving us the opportunity due to take care of your patient. Please call back if you have any questions/concerns. Plan discussed with: Other (RN) JOSSELIN JUNG Jun 09, 2025 12:03
[2025-06-09 12:15] LABS: Anion Gap 12 (5-15); Carbon Dioxide 24 mmol/L (20-31)
[2025-06-09 12:21] LABS: BUN/Creatinine Ratio 21.5 (10.0-20.0)
[2025-06-09 12:22] LABS: Blood Urea Nitrogen 43 mg/dL (9-23); Calcium 8.6 mg/dL (8.7-10.4); Chloride 113 mmol/L (98-107); Glucose 151 mg/dL (74-106); Potassium 2.8 mmol/L (3.5-5.1); Sodium 149 mmol/L (136-145)
[2025-06-09 13:24] LABS: Base Excess -0.2 mmol/L (-2.0-3.0)
[2025-06-09 13:35] LABS: INR 1.08 (0.9-1.15); Partial Thromboplastin Time 48.0 SEC (24.5-34.5); Prothrombin Time 11.4 sec (9.3-11.8)
--- NOTE | 2025-06-09 13:37 | DVHPN2 ---
Progress Note Date Seen: Jun 09, 2025 Medical Necessity Reason Pt with a Central, PICC or Fol: Yes The following are medically ne: Morelos Catheter Reason for morelos catheter: Strict I&O Subjective Patient reports: No new complaints Review of Systems: HEENT:Normal, CVS:Normal, RESPIRATORY:Normal, GI:Normal, :Normal, MSK:Normal, NEURO:Normal Objective vital signs Vital Sign Date Time Temp Pulse Resp B/P (MAP) Pulse Ox O2 Delivery O2 Flow Rate FiO2 06/09/25 08:00 28 93 Nasal Cannula* 4 36 06/09/25 06:00 106 06/09/25 05:30 118/58 (78) 06/09/25 04:00 98.7 98.7 Total Intake and Output 06/08/25 06/08/25 06/09/25 15:00 23:00 07:00 Intake Total 2120 ml 1680 ml Output Total 1500 ml Balance 2120 ml 180 ml medications Current Medications Medications Dose Ordered Sig/Elizabeth Route Start Time Stop Time Status Last Admin Dose Admin Insulin Glargine 15 units DAILY SC 06/09/25 10:00 06/09/25 10:52 15 UNITS Cefepime HCl 50 ml @ 12.5 mls/hr DAILY IV 06/09/25 10:00 06/09/25 10:51 12.5 MLS/HR Nitroglycerin 0.4 mg Q5MINP PRN SL 06/08/25 20:00 Morphine Sulfate 2 mg Q30M PRN IV 06/08/25 20:00 Ondansetron HCl 4 mg Q4HP PRN IV 06/08/25 20:15 Diagnostic Test (Pha) 1 strip Q90MIN 06/08/25 21:00 06/09/25 12:06 1 STRIP Dextrose 50 ml UD PRN IV 06/08/25 22:45 Insulin Human (Reg)/Sodium Chloride 100 ml @ 2 mls/hr Q24H IV 06/09/25 01:00 06/09/25 08:44 24 MLS/HR Insulin Human Regular 2 units ONCE PRN SC 06/09/25 01:00 Insulin Human Regular 4 units ONCE PRN SC 06/09/25 01:00 Sodium Chloride 1,000 ml @ 200 mls/hr Q5H IV 06/09/25 07:30 06/09/25 12:30 200 MLS/HR Potassium Chloride 100 ml @ 50 mls/hr Q2H IV 06/09/25 10:30 06/09/25 16:29 06/09/25 10:30 50 MLS/HR Enoxaparin Sodium 40 mg DAILY SC 06/10/25 10:00 Aspirin 81 mg DAILY PO 06/10/25 10:00 UNV Atorvastatin Calcium 40 mg HS PO 06/09/25 22:00 Examination: GENERAL:Normal, HEENT:Normal, NECK:Normal, LUNGS:Normal, CVS:Normal, ABDOMEN:Normal, MSK:Normal, SKIN:Normal, NEURO:Normal, NEURO:Abnormal (confused), :Normal laboratory and microbiology Laboratory Tests 06/09/25 11:50 06/09/25 03:23 Test 06/09/25 11:50 Range/Units Serum Glucose 151 H 74-106 mg/dL Problem List/Assessment/Plan Problem List/Assessment/Plan #1 DKA: lantus, ssi #2 severe metabolic acidosis: improving #3 encephalopathy- metabolic #4 acute renal failure/ vasomotor nephropathy: ivf #5 h/o htn #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 #7 likely sepsis/pneumonia: iv cefepime #8 hyperlipidemia #9 chronic pain #10 nstemi ?type 2 #11 transaminitis #12 hyperkalemia/hyponatremia Plan discussed with: Patient, Spouse My Orders My Orders Orders - ORQUIDEA LOPEZ MD Procedure Category Date Status Time * Neurology Consult CONS 06/09/25 Verified 13:24 Blood Culture LENKA 06/09/25 Verified 13:24 Complete Blood Count LAB 06/10/25 Verified 06:00 Comprehensive LAB 06/10/25 Verified Metabolic Panel 06:00 Magnesium LAB 06/10/25 Verified 05:00 Phosphorus LAB 06/10/25 Verified 06:00 Chest Portable XY 06/10/25 Verified 06:00 Pantoprazole PHA 06/09/25 Verified (Protonix) 13:30 Pantoprazole PHA 06/10/25 Verified (Protonix) 10:00 Critical Care Time (mins): 47 (critical care time excluding procedures is 47 mins) Date of Service: Jun 09, 2025 Billing Provider: ORQUIDEA LOPEZ MD Common Visit Codes: [id number] CARE 30-74 MIN ORQUIDEA LOPEZ MD Jun 09, 2025 13:37
[2025-06-09] MEDS: PANTOPRAZOLE 40 MG/10 ML VIAL INJ IV ONE (14:47)
[2025-06-09] MEDS: ENOXAPARIN SOD 40 MG/0.4 ML SYRINGE SC ONE (14:47)
--- NOTE | 2025-06-09 15:50 | DVHINCON2 ---
Date of service: Jun 09, 2025 Reason for Consultation YESSI History of Present Illness 70-year-old transgender female history of gender affirming surgery, hypertension, diabetes with recent travel to [place] approximately two weeks ago presents to the hospital found by family unresponsive acutely confused. Patient was presents to the hospital for this reason. Was admitted with a diagnosis of diabetic ketoacidosis with a serum glucose greater than 500 and anion gap metabolic acidosis. Patient is status post IV fluids and insulin drip. Nephrology consulted for electrolyte management and acute kidney injury. History obtained from family at the bedside as patient is currently confused. Was no previous records are history of kidney disease Past Surgical History Gender affirming surgery Allergies: Coded Allergies: Ibuprofen (Verified Allergy, Unknown, 06/08/25) Current Medications Current Medications Medications (Trade) Dose Ordered Sig/Elizabeth Route PRN Reason Start Time Stop Time Status Last Admin Sodium Chloride 1,000 ml @ 500 mls/hr Q2H IV 06/08/25 17:45 06/08/25 21:44 DC 06/08/25 22:00 Sodium Chloride 1,000 ml @ 250 mls/hr Q4H IV 06/08/25 21:45 06/08/25 23:44 DC 06/08/25 22:52 Sodium Chloride 1,000 ml @ 150 mls/hr Q6H40M IV 06/08/25 23:45 06/09/25 07:30 DC 06/09/25 06:29 Insulin Human (Reg)/Sodium Chloride 100 ml @ 0.5 mls/hr Q24H IV 06/08/25 17:45 06/08/25 20:15 DC 06/08/25 19:05 Dextrose 50 ml UD PRN IV SEE CURRENT ALGORITHM or SCALE 06/08/25 17:45 06/08/25 20:15 DC Diagnostic Test (Pha) (Accu-Chek Comfort Curve T) 1 strip Q90MIN 06/08/25 18:00 06/08/25 20:15 DC 06/08/25 20:00 Insulin Glargine (Lantus) 15 units DAILY SC 06/09/25 10:00 06/09/25 10:52 Calcium Gluconate/ Sodium Chloride 50 ml @ 100 mls/hr Q30M IV 06/08/25 19:00 06/08/25 19:59 DC 06/08/25 20:00 Cefepime HCl 50 ml @ 12.5 mls/hr DAILY IV 06/09/25 10:00 06/09/25 10:51 Heparin Sodium/ Dextrose 250 ml @ 10 mls/hr Q24H IV 06/08/25 20:00 06/09/25 05:52 DC 06/08/25 21:10 Nitroglycerin (Ntrostat Sublingual) 0.4 mg Q5MINP PRN SL FOR CHEST PAIN 06/08/25 20:00 Morphine Sulfate 2 mg Q30M PRN IV FOR CHEST PAIN 06/08/25 20:00 Ondansetron HCl (Zofran) 4 mg Q4HP PRN IV NAUSEA / VOMITING 06/08/25 20:15 Dextrose 50 ml UD PRN IV SEE CURRENT ALGORITHM or SCALE 06/08/25 20:15 06/08/25 22:38 DC Diagnostic Test (Pha) (Accu-Chek Comfort Curve T) 1 strip Q90MIN 06/08/25 21:00 06/09/25 13:51 Insulin Human (Reg)/Sodium Chloride 100 ml @ 0.5 mls/hr Q24H IV 06/08/25 20:15 06/08/25 22:34 DC 06/08/25 20:44 Dextrose 50 ml UD PRN IV SEE CURRENT ALGORITHM or SCALE 06/08/25 22:45 Insulin Human (Reg)/Sodium Chloride 100 ml @ 1 mls/hr Q24H IV 06/08/25 22:45 06/09/25 00:55 DC 06/08/25 22:39 Insulin Human (Reg)/Sodium Chloride 100 ml @ 2 mls/hr Q24H IV 06/09/25 01:00 06/09/25 08:44 Insulin Human Regular (InsuLIN R) 2 units ONCE PRN SC SEE PROTOCOL 06/09/25 01:00 Insulin Human Regular (InsuLIN R) 4 units ONCE PRN SC SEE PROTOCOL 06/09/25 01:00 Heparin Sodium/ Dextrose 250 ml @ 7 mls/hr Q24H IV 06/09/25 07:00 06/09/25 11:49 DC 06/09/25 06:57 Sodium Chloride 1,000 ml @ 200 mls/hr Q5H IV 06/09/25 07:30 06/09/25 12:30 Potassium Chloride 100 ml @ 50 mls/hr Q2H IV 06/09/25 10:30 06/09/25 16:29 06/09/25 12:31 Enoxaparin Sodium (Lovenox) 40 mg DAILY SC 06/10/25 10:00 Aspirin 81 mg DAILY PO 06/10/25 10:00 Atorvastatin Calcium (Lipitor) 40 mg HS PO 06/09/25 22:00 06/09/25 13:32 DC Pantoprazole Sodium (Protonix) 40 mg DAILY IV 06/10/25 10:00 Review of Systems Altered mental status H&P Exam Vital Signs/I&O Vital Sign Date Time Temp Pulse Resp B/P (MAP) Pulse Ox O2 Delivery O2 Flow Rate FiO2 06/09/25 08:00 28 93 Nasal Cannula* 4 36 06/09/25 06:00 106 06/09/25 05:30 118/58 (78) 06/09/25 04:00 98.7 98.7 Intake and Output 06/08/25 06/09/25 19:00 07:00 Intake Total 1000 ml 2800 ml Output Total 1500 ml Balance 1000 ml 1300 ml Intake Oral 0 ml IV Total 1000 ml 2800 ml Output Urine Total 1500 ml Physical Exam Altered Not in respiratory distress Nonverbal Mid in soft restraints spontaneous movements Abdomen is soft No pitting edema Stern catheter Labs/Diagnostic Data Labs/Diagnostic Data Laboratory Tests Test 06/09/25 14:40 06/09/25 14:37 06/09/25 13:19 06/09/25 13:14 Range/Units POC Glucose 125 H 142 H 70-106 mg/dl Blood Gas Specimen Type Arterial Blood Gas Sample Site Right radial Blood Gas Patient Temperature 37.0 Arterial Blood Date Drawn [id number] Arterial Blood pH 7.480 H 7.350-7.450 Arterial Blood Partial Pressure CO2 30.9 L 32.0-45.0 mmHg Arterial Blood Partial Pressure O2 83.8 83.0-108.0 mmHg Arterial Blood HCO3 22.5 21.0-28.0 mmol/L Arterial Blood Oxygen Saturation 95.8 94.0-98.0 % Arterial Blood Base Excess -0.2 -2.0-3.0 mmol/L Arterial Blood Oxyhemoglobin 95.3 94.0-98.0 % Arterial Blood Carboxyhemoglobin 0.0 L 0.5-1.5 % Arterial Blood Methemoglobin 0.5 0.0-1.5 % Abel Test Modified Blood Gas Total Hemoglobin 12.70 12.0-16.0 g/dL Blood Gas Liter Flow 4.50 Blood Gas Modality Nasal cannula FiO2 % 38.0 Test 06/09/25 12:51 06/09/25 12:05 06/09/25 11:50 06/09/25 10:47 Range/Units Prothrombin Time 11.4 9.3-11.8 sec Prothrombin Time INR 1.08 0.9-1.15 Activated Partial Thromboplast Time 48.0 H 24.5-34.5 SEC POC Glucose 157 H 184 H 70-106 mg/dl Sodium Level 149 H 136-145 mmol/L Potassium Level 2.8 L 3.5-5.1 mmol/L Chloride Level 113 H 98-107 mmol/L Carbon Dioxide Level 24 20-31 mmol/L Anion Gap 12 5-15 Blood Urea Nitrogen 43 H 9-23 mg/dL Creatinine 2.00 H 0.550-1.02 mg/dL Glomerular Filtration Rate Calc 26 >90 mL/min BUN/Creatinine Ratio 21.5 H 10.0-20.0 Serum Glucose 151 H 74-106 mg/dL Calcium Level 8.6 L 8.7-10.4 mg/dL Test 06/09/25 09:17 06/09/25 09:08 06/09/25 07:56 06/09/25 05:59 Range/Units Sodium Level 148 #H 136-145 mmol/L Potassium Level 2.7 L 3.5-5.1 mmol/L Chloride Level 111 #H 98-107 mmol/L Carbon Dioxide Level 21 20-31 mmol/L Anion Gap 16 H 5-15 Blood Urea Nitrogen 40 H 9-23 mg/dL Creatinine 2.26 H 0.550-1.02 mg/dL Glomerular Filtration Rate Calc 23 >90 mL/min BUN/Creatinine Ratio 17.7 10.0-20.0 Serum Glucose 247 H 74-106 mg/dL Calcium Level 9.0 8.7-10.4 mg/dL POC Glucose 257 H 319 H 474 *H 70-106 mg/dl Test 06/09/25 04:36 06/09/25 03:30 06/09/25 03:23 06/09/25 03:21 Range/Units POC Glucose > 600 *H > 600 *H 70-106 mg/dl White Blood Count 18.1 #H 4.4-10.8 10^3/uL Red Blood Count 4.85 4.0-5.20 10^6/uL Hemoglobin 14.5 12.2-16.2 g/dL Hematocrit 45.9 36.0-46.0 % Mean Corpuscular Volume 94.7 # 80.0-100.0 fL Mean Corpuscular Hemoglobin 29.8 28.0-32.0 pg Mean Corpuscular Hemoglobin Concent 31.5 L 32.0-36.0 g/dL Red Cell Distribution Width 15.0 H 11.8-14.3 % Platelet Count 270 140-450 10^3/uL Mean Platelet Volume 10.2 6.9-10.8 fL Neutrophils (%) (Auto) 74.4 37.0-80.0 % Lymphocytes (%) (Auto) 23.1 10.0-50.0 % Monocytes (%) (Auto) 2.1 0.0-12.0 % Eosinophils (%) (Auto) 0.1 0.0-7.0 % Basophils (%) (Auto) 0.3 0.0-2.0 % Neutrophils # (Auto) 13.5 H 1.6-8.6 10 ^3/uL Lymphocytes # (Auto) 4.2 0.4-5.4 10 ^3/uL Monocytes # (Auto) 0.4 0-1.3 10 ^3/uL Eosinophils # (Auto) 0 0-0.8 10 ^3/uL Basophils # (Auto) 0.1 0-0.2 10 ^3/uL Nucleated Red Blood Cells 0.0 % Prothrombin Time 12.2 H 9.3-11.8 sec Prothrombin Time INR 1.17 H 0.9-1.15 Activated Partial Thromboplast Time 125.3 *H 24.5-34.5 SEC Sodium Level 140 136-145 mmol/L Potassium Level 3.4 L 3.5-5.1 mmol/L Chloride Level 98 98-107 mmol/L Carbon Dioxide Level < 10 *L 20-31 mmol/L Anion Gap 32.75485 H 5-15 Blood Urea Nitrogen 44 #H 9-23 mg/dL Creatinine 3.07 H 0.550-1.02 mg/dL Glomerular Filtration Rate Calc 16 >90 mL/min BUN/Creatinine Ratio 14.3 10.0-20.0 Serum Glucose 697 *H 74-106 mg/dL Calcium Level 9.7 8.7-10.4 mg/dL Total Bilirubin 0.2 0.2-1.0 mg/dL Aspartate Amino Transferase (AST) 115 H 13-40 U/L Alanine Aminotransferase (ALT) 63 H 7-40 U/L Alkaline Phosphatase 117 H 46-116 U/L Total Protein 7.1 5.7-8.2 g/dL Albumin 4.6 3.2-4.8 g/dL Hemoglobin A1c 10.6 H <5.7 % A1C Test 06/09/25 02:17 06/09/25 01:28 06/09/25 00:27 06/08/25 23:30 Range/Units Serum Glucose 804 *H 835 *H 74-106 mg/dL POC Glucose > 600 *H 70-106 mg/dl Blood Gas Specimen Type Arterial Blood Gas Sample Site Left radial Blood Gas Patient Temperature 37.0 Arterial Blood Date Drawn [id number] Arterial Blood pH 7.133 *L 7.350-7.450 Arterial Blood Partial Pressure CO2 < 14.1 *L 32.0-45.0 mmHg Arterial Blood Partial Pressure O2 87.2 83.0-108.0 mmHg Arterial Blood Oxygen Saturation 95.6 94.0-98.0 % Arterial Blood Oxyhemoglobin 94.7 94.0-98.0 % Arterial Blood Carboxyhemoglobin 0.4 L 0.5-1.5 % Arterial Blood Methemoglobin 0.5 0.0-1.5 % Abel Test Modified Blood Gas Total Hemoglobin 13.90 12.0-16.0 g/dL Blood Gas Modality Room air FiO2 % 21.0 Blood Gas Critical Value Read Back Yes Blood Gas Notified Whom jamel Cardozo, nicolasa Blood Gas Notified Time [id number] Blood Gas Notified By jamel Avila, maddie Sodium Level 136 # 136-145 mmol/L Potassium Level 4.0 # 3.5-5.1 mmol/L Chloride Level 103 # 98-107 mmol/L Carbon Dioxide Level < 10 *L 20-31 mmol/L Anion Gap 23.09980 H 5-15 Blood Urea Nitrogen 33 #H 9-23 mg/dL Creatinine 2.61 H 0.550-1.02 mg/dL Glomerular Filtration Rate Calc 19 >90 mL/min BUN/Creatinine Ratio 12.6 10.0-20.0 Calcium Level 7.2 L 8.7-10.4 mg/dL Test 06/08/25 22:29 06/08/25 20:42 06/08/25 20:36 06/08/25 18:55 Range/Units POC Glucose > 600 *H 70-106 mg/dl Lactic Acid Level 4.7 *H 0.4-2.0 mmol/L Troponin I High Sensitivity 1054 *H 1308 *H </=34 ng/L Blood Gas Specimen Type Arterial Blood Gas Sample Site Left radial Blood Gas Patient Temperature 37.0 Arterial Blood Date Drawn [id number] Arterial Blood pH 7.018 *L 7.350-7.450 Arterial Blood Partial Pressure CO2 < 14.1 *L 32.0-45.0 mmHg Arterial Blood Partial Pressure O2 90.5 83.0-108.0 mmHg Arterial Blood Oxygen Saturation 94.2 94.0-98.0 % Arterial Blood Oxyhemoglobin 93.4 L 94.0-98.0 % Arterial Blood Carboxyhemoglobin 0.4 L 0.5-1.5 % Arterial Blood Methemoglobin 0.5 0.0-1.5 % Abel Test Modified Blood Gas Total Hemoglobin 13.80 12.0-16.0 g/dL Blood Gas Modality Room air FiO2 % 21.0 Blood Gas Critical Value Read Back Yes Blood Gas Notified Whom jamel Cardozo agacnp Blood Gas Notified Time [id number] Blood Gas Notified By haylee Scanlon rrt Test 06/08/25 18:40 06/08/25 17:53 06/08/25 17:44 06/08/25 17:15 Range/Units Urine Color Light-yellow Yellow Urine Clarity Clear Clear Urine pH 5.0 5.0-9.0 Urine Specific [place] 1.020 1.001-1.035 Urine Protein Trace H Negative Urine Ketones 3+ H Negative Urine Blood 1+ H Negative /uL Urine Nitrite Negative Negative Urine Bilirubin Negative Negative Urine Urobilinogen Normal Negative mg/dL Urine Leukocyte Esterase Negative Negative /uL Urine RBC 1 0 - 4 /hpf Urine Microscopic WBC 1 0-5 /HPF Urine Squamous Epithelial Cells Few <5 /hpf Urine Bacteria None seen None Seen /hpf Urine Hyaline Casts Few 0 - 2 /lpf Urine Mucus Few None Seen Urine Glucose 4+ H Normal mg/dL White Blood Count 26.7 H 4.4-10.8 10^3/uL Red Blood Count 4.45 4.0-5.20 10^6/uL Hemoglobin 13.3 12.2-16.2 g/dL Hematocrit 47.5 H 36.0-46.0 % Mean Corpuscular Volume 106.8 H 80.0-100.0 fL Mean Corpuscular Hemoglobin 30.0 28.0-32.0 pg Mean Corpuscular Hemoglobin Concent 28.1 L 32.0-36.0 g/dL Red Cell Distribution Width 15.9 H 11.8-14.3 % Platelet Count 329 140-450 10^3/uL Mean Platelet Volume 10.2 6.9-10.8 fL Neutrophils (%) (Auto) 37.0-80.0 % Lymphocytes (%) (Auto) 10.0-50.0 % Monocytes (%) (Auto) 0.0-12.0 % Basophils (%) (Auto) 0.0-2.0 % Neutrophils # (Auto) 1.6-8.6 10 ^3/uL Lymphocytes # (Auto) 0.4-5.4 10 ^3/uL Monocytes # (Auto) 0-1.3 10 ^3/uL Differential Total Cells Counted 100.0 100 Neutrophils % (Manual) 70 37.0-80.0 Band Neutrophils % (Manual) 11 Lymphocytes % (Manual) 10 10.0-50.0 Monocytes % (Manual) 9 0-12 Eosinophils % (Manual) 0 0-7 Basophils % (Manual) 0 0.0-2.0 Metamyelocytes % (manual) 0 Myelocytes % (Manual) 0 Promyelocytes % (Manual) 0 Blast Cells % (Manual) 0 Reactive Lymphocytes 0 Platelet Estimate Adequate Anisocytosis (manual) Slight Macrocytosis Moderate Prothrombin Time 11.4 9.3-11.8 sec Prothrombin Time INR 1.08 0.9-1.15 Activated Partial Thromboplast Time 36.2 H 24.5-34.5 SEC Sodium Level 125 L 136-145 mmol/L Potassium Level 7.2 *H 3.5-5.1 mmol/L Chloride Level 87 L 98-107 mmol/L Carbon Dioxide Level < 10 *L 20-31 mmol/L Anion Gap 28.86109 H 5-15 Blood Urea Nitrogen 47 H 9-23 mg/dL Creatinine 3.14 H 0.550-1.02 mg/dL Glomerular Filtration Rate Calc 15 >90 mL/min BUN/Creatinine Ratio 15.0 10.0-20.0 Serum Glucose 1233 *H 74-106 mg/dL Serum Osmolality 376 H 278-298 mOsm/kg Lactic Acid Level 5.5 *H 0.4-2.0 mmol/L Calcium Level 9.1 8.7-10.4 mg/dL Phosphorus Level 15.2 H 2.4-5.1 mg/dL Magnesium Level 2.7 H 1.6-2.6 mg/dL Total Bilirubin 0.2 0.2-1.0 mg/dL Aspartate Amino Transferase (AST) 67 H 13-40 U/L Alanine Aminotransferase (ALT) 68 H 7-40 U/L Alkaline Phosphatase 133 H 46-116 U/L Troponin I High Sensitivity 984 *H </=34 ng/L B-Type Natriuretic Peptide 179.92 0-100 pg/mL Total Protein 6.7 5.7-8.2 g/dL Albumin 4.5 3.2-4.8 g/dL Beta-Hydroxybutyric Acid > 4.500 H < 0.4 mmol/L POC Glucose > 600 *H 70-106 mg/dl Blood Gas Specimen Type Arterial Blood Gas Sample Site Right radial Blood Gas Patient Temperature 37.0 Arterial Blood Date Drawn [id number] Arterial Blood pH 6.946 *L 7.350-7.450 Arterial Blood Partial Pressure CO2 < 14.1 *L 32.0-45.0 mmHg Arterial Blood Partial Pressure O2 124.1 H 83.0-108.0 mmHg Arterial Blood Oxygen Saturation 96.8 94.0-98.0 % Arterial Blood Oxyhemoglobin 95.4 94.0-98.0 % Arterial Blood Carboxyhemoglobin 0.8 0.5-1.5 % Arterial Blood Methemoglobin 0.6 0.0-1.5 % Abel Test Modified Blood Gas Total Hemoglobin 13.70 12.0-16.0 g/dL Blood Gas Modality Room air FiO2 % 21.0 Blood Gas Critical Value Read Back Yes Blood Gas Notified Whom xiomara Doshi md Blood Gas Notified Time [id number] Blood Gas Notified By haylee Scanlon rrt Microbiology Date/Time Source Procedure Growth Status 06/09/25 01:31 Nose MRSA Screen - Final Complete Assessment 70-year-old transgender female presents to the hospital with altered mental status in setting of ketoacidosis Acute kidney injury prerenal setting of volume depletion Shock in the setting of diabetic ketoacidosis Altered mental status Anion gap metabolic acidosis Hypokalemia Hypernatremia Currently has Stern catheter monitoring urinary output, once Stern catheter is removed if patient has urinary retention suspect the possibility of retained prostate post gender affirming surgery. Would recommend kidney /bladder US at that time. Insulin drip status post Lantus now the anion gap has closed. Patient will need subcu insulin sliding scale IV fluids change to D5W with 0.5% NaCl given patient remains altered in his unable to eat. Monitor urinary output Avoid hypotension Avoid contrast studies if able at this time. Sepsis workup Neurology evaluation currently ongoing Critically ill but no indication for dialysis at this time as renal function is improving. Critical care time spent 40 minutes Plan discussed with: Other RITCHIE VELAZQUEZ MD Jun 09, 2025 15:50
[2025-06-09 15:51] LABS: Amphetamine Screen, Urine Neg (NEGATIVE); Barbiturate Scree,Urine Neg (NEGATIVE); Benzodiazephine Screen, Urine Neg (NEGATIVE); Cocaine Screen, Urine Neg (NEGATIVE); Opiate Scree,Urine Neg (NEGATIVE)
[2025-06-09 15:52] LABS: Cannabinoid Screen, Urine Pos (NEGATIVE); Phencyclidine Screen, Urine Neg (NEGATIVE)
[2025-06-09] MEDS: D5W/SOD CHL 0.45% 1,000 ML IV SCH (16:00)
[2025-06-09] MEDS: ACCU-CHEK COMFORT CURVE STRIP VI SCH (16:04)
[2025-06-09] MEDS: InsuLIN REG 1unit/0.01ml Soln (100units/ml) SC SCH (16:08)
[2025-06-09] MEDS ORDERED: DEXTROSE (50%) 50ML SYRG IV PRN (16:15)
[2025-06-09] MEDS: LORazepam 2MG/ML-1ML VIAL IV ONE (20:42)
--- NOTE | 2025-06-09 21:15 | DVHINCON2 ---
Date of service: Jun 09, [address] Fernandez Reason for Consultation ALOC History of Present Illness Hermes cruz is 70 years old with a history of hypertension, diabetes, dyslipidemia, bladder cancer, the patient was admitted to the [facility] on 06/08/2025 with a chief company of altered mental status. At the time, the patient is awake, only oriented to herself, the history is obtained from talking to Yani, nurse, and chart review, I have also discussed with Dr. Fernandez The patient's complaint about discomfort, nausea, vomiting, dizziness. On 06/08/2025, the family found the patient on the floor nonresponsive, late the patient was responsive to voice and was able to mumble. But when the EMS came over, the patient was only responsive to deep sternal rub, the patient was found to have Kussmaul respiration, in the hospital, the patient was found to have remarkably elevated glucose, metabolic acidosis, elevated beta hydroxybutyric acid. The patient also has obvious altered mental status, the patient is not cooperative with our medical staff, keeps moving in the bed T-max, 100.3 [phone], wrong number. [phone] - -UDS, 06/09/2025: Cannabinoids Urinalysis, 06/08/2025: WBC: One, urine leukocyte esterase: Negative ABG, 06/08/2025: Metabolic acidosis, 06/09/2025: Metabolic acidosis WBC/HB/PLT/MCV, 06/09/2025: 18.1/14.5/271/94.7 PT/INR/PTT, 06/08/2025: 11.4/1.08/33.2, 06/09/2025: 12.2/1.17/125.3, 06/09/2025: 11.4/1.08/40 Na 06/08/2025: 125, 136, 06/09/2025: 140, 148, 149 K 06/08/2025: 7.2, four, 06/09/2025: 3.4, 2.7, 3.9 BUN/CR, 06/09/2025: 40/2.26, 06/09/2025: 43/2 Glucose, 06/08/2025: 1233, 835, 06/09/2025: 804, 247, 151 Lactic acid, 06/08/2025: 5.5, 4.7 HGB A1c, 06/09/2025: 10.6 TBI/AST/ALT/AP, 06/08/2025: 0.2/67/68/133 TSH, 06/09/2025: 1.04 Beta hydroxybutyric acid 06/08/2025: >4.5 CT head, 06/08/2025: No acute intracranial abnormality. Past Medical History Diabetes, hypertension, dyslipidemia, bladder cancer status post chemotherapy, Past Surgical History Spine surgery, male to female transgender surgery Family History Unknown Social History Patient is a not tobacco smoke, with no history of drug or alcohol abuse Allergies: Coded Allergies: Ibuprofen (Verified Allergy, Unknown, 06/08/25) Current Medications Current Medications Medications (Trade) Dose Ordered Sig/Elizabeth Route PRN Reason Start Time Stop Time Status Last Admin Sodium Chloride 1,000 ml @ 250 mls/hr Q4H IV 06/08/25 21:45 06/08/25 23:44 DC 06/08/25 22:52 Sodium Chloride 1,000 ml @ 150 mls/hr Q6H40M IV 06/08/25 23:45 06/09/25 07:30 DC 06/09/25 06:29 Insulin Glargine (Lantus) 15 units DAILY SC 06/09/25 10:00 06/09/25 10:52 Cefepime HCl 50 ml @ 12.5 mls/hr DAILY IV 06/09/25 10:00 06/09/25 10:51 Dextrose 50 ml UD PRN IV SEE CURRENT ALGORITHM or SCALE 06/08/25 22:45 06/09/25 16:15 DC Insulin Human (Reg)/Sodium Chloride 100 ml @ 1 mls/hr Q24H IV 06/08/25 22:45 06/09/25 00:55 DC 06/08/25 22:39 Insulin Human (Reg)/Sodium Chloride 100 ml @ 2 mls/hr Q24H IV 06/09/25 01:00 06/09/25 16:09 DC 06/09/25 08:44 Insulin Human Regular (InsuLIN R) 2 units ONCE PRN SC SEE PROTOCOL 06/09/25 01:00 06/09/25 17:10 DC Insulin Human Regular (InsuLIN R) 4 units ONCE PRN SC SEE PROTOCOL 06/09/25 01:00 06/09/25 17:10 DC Heparin Sodium/ Dextrose 250 ml @ 7 mls/hr Q24H IV 06/09/25 07:00 06/09/25 11:49 DC 06/09/25 06:57 Sodium Chloride 1,000 ml @ 200 mls/hr Q5H IV 06/09/25 07:30 06/09/25 15:52 DC 06/09/25 12:30 Potassium Chloride 100 ml @ 50 mls/hr Q2H IV 06/09/25 10:30 06/09/25 16:29 DC 06/09/25 12:31 Enoxaparin Sodium (Lovenox) 40 mg DAILY SC 06/10/25 10:00 Aspirin 81 mg DAILY PO 06/10/25 10:00 Atorvastatin Calcium (Lipitor) 40 mg HS PO 06/09/25 22:00 06/09/25 13:32 DC Pantoprazole Sodium (Protonix) 40 mg DAILY IV 06/10/25 10:00 Dextrose/Sodium Chloride 1,000 ml @ 50 mls/hr Q20H IV 06/09/25 16:00 06/09/25 16:00 Diagnostic Test (Pha) (Accu-Chek Comfort Curve T) 1 strip Q4HR 06/09/25 16:00 06/09/25 18:25 Insulin Human Regular (InsuLIN R) Q4HR SC 06/09/25 16:00 06/09/25 18:00 Dextrose 50 ml UD PRN IV Blood Sugar LESS THAN 60 06/09/25 16:15 Review of Systems As above, the other systems are negative Vital Signs Vital Signs Date Time Temp Pulse Resp B/P (MAP) Pulse Ox O2 Delivery O2 Flow Rate FiO2 06/09/25 20:00 20 95 Room Air* 0 21 06/09/25 20:00 106 06/09/25 19:00 118/61 (80) 06/09/25 12:00 100.3 100.3 Physical Exam GENERAL EXAM: General: the patient is well developed and nourished. No acute distress. HEENT: Normocephalic, neck is supple, no carotid bruits. No mass. RESPIRATORY: Normal respiratory effort with symmetrical lung expansion. Lungs clear to auscultation. CARDIOVASCULAR: Regular rate and rhythm with no murmurs. S1, S2. ABDOMEN: Soft, nontender, normal bowel sound NEUROLOGICAL: MENTAL STATUS: HPI SPEECH, LANGUAGE, HIGHER CORTICAL FUNCTION: no aphasia or dysathria. CRANIAL NERVES: #2: Intact visual vazquez to visual thread #3,4,6: Pupils are equal, round and reactive. EOMs full and conjugate. #5: Facial sensation intact in all three divisions bilaterally. Mandibular strength intact. #7: Facial muscles symmetrical and strength intact. #8: Hearing grossly normal to voice. #9,10: Deferred #11: Trapezius and sternomastoid strength intact bilaterally. #12: Deferred SENSATION: Sensation to touch and pinprick is okay MOTOR: Normal tone in the upper and lower extremity. Normal muscle bulk. No fasciculations. No abnormal movements or posturing. Muscle strength of the major groups in the upper extremities is 5/5. Muscle strength of the major groups in the lower extremities is 5/5. REFLEXES: Deep tendon reflexes are symmetrical. No pathological reflexes. CEREBELLAR/COORDINATION: Deferred GAIT/STATION: deferred. Labs/Diagnostic Data Labs Test 06/09/25 18:43 06/09/25 18:27 06/09/25 14:40 06/09/25 13:14 Range/Units Potassium Level 3.9 3.5-5.1 mmol/L POC Glucose 289 H 70-106 mg/dl Urine Opiates Screen Neg NEGATIVE Urine Fentanyl Screen Neg NEGATIVE Urine Barbiturates Screen Neg NEGATIVE Urine Phencyclidine Screen Neg NEGATIVE Urine Amphetamines Screen Neg NEGATIVE Urine Benzodiazepines Screen Neg NEGATIVE Urine Cocaine Screen Neg NEGATIVE Urine Cannabinoids Screen Pos NEGATIVE Blood Gas Specimen Type Arterial Blood Gas Sample Site Right radial Blood Gas Patient Temperature 37.0 Arterial Blood Date Drawn [id number] Arterial Blood pH 7.480 H 7.350-7.450 Arterial Blood Partial Pressure CO2 30.9 L 32.0-45.0 mmHg Arterial Blood Partial Pressure O2 83.8 83.0-108.0 mmHg Arterial Blood HCO3 22.5 21.0-28.0 mmol/L Arterial Blood Oxygen Saturation 95.8 94.0-98.0 % Arterial Blood Base Excess -0.2 -2.0-3.0 mmol/L Arterial Blood Oxyhemoglobin 95.3 94.0-98.0 % Arterial Blood Carboxyhemoglobin 0.0 L 0.5-1.5 % Arterial Blood Methemoglobin 0.5 0.0-1.5 % Abel Test Modified Blood Gas Total Hemoglobin 12.70 12.0-16.0 g/dL Blood Gas Liter Flow 4.50 Blood Gas Modality Nasal cannula FiO2 % 38.0 Test 06/09/25 12:51 06/09/25 11:50 06/09/25 09:17 06/09/25 03:23 Range/Units Prothrombin Time 11.4 9.3-11.8 sec Prothrombin Time INR 1.08 0.9-1.15 Activated Partial Thromboplast Time 48.0 H 24.5-34.5 SEC Sodium Level 149 H 136-145 mmol/L Chloride Level 113 H 98-107 mmol/L Carbon Dioxide Level 24 20-31 mmol/L Anion Gap 12 5-15 Blood Urea Nitrogen 43 H 9-23 mg/dL Creatinine 2.00 H 0.550-1.02 mg/dL Glomerular Filtration Rate Calc 26 >90 mL/min BUN/Creatinine Ratio 21.5 H 10.0-20.0 Serum Glucose 151 H 74-106 mg/dL Calcium Level 8.6 L 8.7-10.4 mg/dL Thyroid Stimulating Hormone (TSH) 1.04 0.55-4.78 uIU/mL White Blood Count 18.1 #H 4.4-10.8 10^3/uL Red Blood Count 4.85 4.0-5.20 10^6/uL Hemoglobin 14.5 12.2-16.2 g/dL Hematocrit 45.9 36.0-46.0 % Mean Corpuscular Volume 94.7 # 80.0-100.0 fL Mean Corpuscular Hemoglobin 29.8 28.0-32.0 pg Mean Corpuscular Hemoglobin Concent 31.5 L 32.0-36.0 g/dL Red Cell Distribution Width 15.0 H 11.8-14.3 % Platelet Count 270 140-450 10^3/uL Mean Platelet Volume 10.2 6.9-10.8 fL Neutrophils (%) (Auto) 74.4 37.0-80.0 % Lymphocytes (%) (Auto) 23.1 10.0-50.0 % Monocytes (%) (Auto) 2.1 0.0-12.0 % Eosinophils (%) (Auto) 0.1 0.0-7.0 % Basophils (%) (Auto) 0.3 0.0-2.0 % Neutrophils # (Auto) 13.5 H 1.6-8.6 10 ^3/uL Lymphocytes # (Auto) 4.2 0.4-5.4 10 ^3/uL Monocytes # (Auto) 0.4 0-1.3 10 ^3/uL Eosinophils # (Auto) 0 0-0.8 10 ^3/uL Basophils # (Auto) 0.1 0-0.2 10 ^3/uL Nucleated Red Blood Cells 0.0 % Total Bilirubin 0.2 0.2-1.0 mg/dL Aspartate Amino Transferase (AST) 115 H 13-40 U/L Alanine Aminotransferase (ALT) 63 H 7-40 U/L Alkaline Phosphatase 117 H 46-116 U/L Total Protein 7.1 5.7-8.2 g/dL Albumin 4.6 3.2-4.8 g/dL Test 06/09/25 03:21 06/09/25 00:27 06/08/25 20:42 06/08/25 18:40 Range/Units Hemoglobin A1c 10.6 H <5.7 % A1C B-Type Natriuretic Peptide 239.89 0-100 pg/mL Blood Gas Critical Value Read Back Yes Blood Gas Notified Whom jamel Cardozo, nicolasa Blood Gas Notified Time [id number] Blood Gas Notified By jamel Avila, maddie Lactic Acid Level 4.7 *H 0.4-2.0 mmol/L Troponin I High Sensitivity 1054 *H </=34 ng/L Urine Color Light-yellow Yellow Urine Clarity Clear Clear Urine pH 5.0 5.0-9.0 Urine Specific [place] 1.020 1.001-1.035 Urine Protein Trace H Negative Urine Ketones 3+ H Negative Urine Blood 1+ H Negative /uL Urine Nitrite Negative Negative Urine Bilirubin Negative Negative Urine Urobilinogen Normal Negative mg/dL Urine Leukocyte Esterase Negative Negative /uL Urine RBC 1 0 - 4 /hpf Urine Microscopic WBC 1 0-5 /HPF Urine Squamous Epithelial Cells Few <5 /hpf Urine Bacteria None seen None Seen /hpf Urine Hyaline Casts Few 0 - 2 /lpf Urine Mucus Few None Seen Urine Glucose 4+ H Normal mg/dL Test 06/08/25 17:53 Range/Units Differential Total Cells Counted 100.0 100 Neutrophils % (Manual) 70 37.0-80.0 Band Neutrophils % (Manual) 11 Lymphocytes % (Manual) 10 10.0-50.0 Monocytes % (Manual) 9 0-12 Eosinophils % (Manual) 0 0-7 Basophils % (Manual) 0 0.0-2.0 Metamyelocytes % (manual) 0 Myelocytes % (Manual) 0 Promyelocytes % (Manual) 0 Blast Cells % (Manual) 0 Reactive Lymphocytes 0 Platelet Estimate Adequate Anisocytosis (manual) Slight Macrocytosis Moderate Serum Osmolality 376 H 278-298 mOsm/kg Phosphorus Level 15.2 H 2.4-5.1 mg/dL Magnesium Level 2.7 H 1.6-2.6 mg/dL Beta-Hydroxybutyric Acid > 4.500 H < 0.4 mmol/L Microbiology Date/Time Source Procedure Growth Status 06/09/25 01:31 Nose MRSA Screen - Final Complete 06/08/25 17:53 Blood Blood Culture - Preliminary NO GROWTH AFTER 24 HOURS OF INCUBATION. Resulted Assessment Altered mental status, likely metabolic encephalopathy secondary to Diabetic ketoacidosis Metabolic acidosis Hypoglycemia Dehydration Hyponatremia, hypernatremia Fever/leukocytosis/sepsis Acute kidney failure Plan/Recommendation Monitoring Supportive treatment CRISTIAN care Glucose control Correct metabolic acidosis Haldol 2.5 mg intramuscular Q 8 hours as needed for agitation Consider EEG when the patient is better cooperative More recommendation per clinical course Progress: Poor This medical document was created using an electronic medical record system with [employer] dictation system. Although this document has been carefully reviewed, there may still be some phonetic and typographical errors. These areas are purely typographical due to imperfections of the software programs, and do not reflect any compromise in the patient's medical care. Nephrology on case Plan discussed with: Daughter, Other ANDRÉS THOMAS MD Jun 09, 2025 21:15
[2025-06-09] MEDS ORDERED: HALOPERIDOL LACTATE 5 MG/ML INJ VIAL IV PRN (21:30)
[2025-06-09] MEDS ORDERED: ATORVASTATIN 20 MG TAB PO SCH (22:00)
[2025-06-09] MEDS: HALOPERIDOL LACTATE 5 MG/ML INJ VIAL IM PRN (22:25)
[2025-06-10] VITALS (44 sets, daily range): BP systolic 92–161; BP diastolic 44–92; PULSE 94–115; RESP 12–32; TEMP 97.8–100.5; O2SAT 88–100
[2025-06-10] MEDS ORDERED: InsuLIN REG 1unit/0.01ml Soln (100units/ml) SC SCH
[2025-06-10] MEDS: InsuLIN REG 1unit/0.01ml Soln (100units/ml) SC SCH (02:06)
[2025-06-10] MEDS: HALOPERIDOL LACTATE 5 MG/ML INJ VIAL IM ONE (03:48)
--- NOTE | 2025-06-10 05:44 | DVH ---
CHEST RADIOGRAPH Indication: PNEUMONIA Technique: Single frontal view of the chest was obtained COMPARISON: XY CHEST XRAY 1 VIEW on DOS: 06/08/25 FINDINGS: Lines and Tubes: None Lungs: Congestion Pleura: No effusion. No pneumothorax. Cardiomediastinal contours: Cardiomegaly Bones: Unremarkable IMPRESSION: Unchanged Pulmonary vascular congestion
[2025-06-10] MEDS: PANTOPRAZOLE 40 MG/10 ML VIAL INJ IV SCH (09:59)
[2025-06-10] MEDS: ENOXAPARIN SOD 40 MG/0.4 ML SYRINGE SC SCH (10:05)
[2025-06-10 10:51] LABS: Hematocrit 39.5 % (36.0-46.0); Hemoglobin 13.3 g/dL (12.2-16.2); Mean Corpuscular Hemoglobin 30.3 pg (28.0-32.0); Mean Corpuscular Volume 89.7 fL (80.0-100.0); Nucleated Red Blood Cells % 0.1 %
[2025-06-10 11:08] LABS: Albumin 3.8 g/dL (3.2-4.8); Alkaline Phosphatase 93 U/L (46-116); Anion Gap 11 (5-15); BUN/Creatinine Ratio 21.9 (10.0-20.0); Calcium 8.8 mg/dL (8.7-10.4); Carbon Dioxide 24 mmol/L (20-31)
[2025-06-10 11:09] LABS: Alanine Aminotransferase 71 U/L (7-40); Bilirubin, Total 0.5 mg/dL (0.2-1.0); Blood Urea Nitrogen 28 mg/dL (9-23); Chloride 112 mmol/L (98-107); Glucose 260 mg/dL (74-106); Magnesium 1.6 mg/dL (1.6-2.6); Potassium 3.4 mmol/L (3.5-5.1); Sodium 147 mmol/L (136-145); Total Protein 5.6 g/dL (5.7-8.2)
--- NOTE | 2025-06-10 11:26 | DVHPN2 ---
Progress Note Date Seen: Jun 10, 2025 Medical Necessity Reason Pt with a Central, PICC or Fol: Yes The following are medically ne: Morelos Catheter Reason for morelos catheter: Strict I&O Subjective Review of Systems: Deferred Objective vital signs Vital Sign Date Time Temp Pulse Resp B/P (MAP) Pulse Ox O2 Delivery O2 Flow Rate FiO2 06/10/25 10:00 27 93 Room Air* 0 21 06/10/25 10:00 99 06/10/25 07:00 146/88 (107) 06/10/25 04:00 100.0 100.0 Total Intake and Output 06/09/25 06/09/25 06/10/25 15:00 23:00 07:00 Intake Total 1885.0 ml 450 ml 350 ml Output Total 1400 ml 1000 ml Balance 1885.0 ml -950 ml -650 ml medications Current Medications Medications Dose Ordered Sig/Elizabeth Route Start Time Stop Time Status Last Admin Dose Admin Insulin Glargine 15 units DAILY SC 06/09/25 10:00 06/10/25 10:05 15 UNITS Cefepime HCl 50 ml @ 12.5 mls/hr DAILY IV 06/09/25 10:00 06/10/25 09:59 12.5 MLS/HR Nitroglycerin 0.4 mg Q5MINP PRN SL 06/08/25 20:00 Morphine Sulfate 2 mg Q30M PRN IV 06/08/25 20:00 Ondansetron HCl 4 mg Q4HP PRN IV 06/08/25 20:15 Enoxaparin Sodium 40 mg DAILY SC 06/10/25 10:00 06/10/25 10:05 40 MG Aspirin 81 mg DAILY PO 06/10/25 10:00 06/10/25 09:59 81 MG Pantoprazole Sodium 40 mg DAILY IV 06/10/25 10:00 06/10/25 09:59 40 MG Dextrose/Sodium Chloride 1,000 ml @ 50 mls/hr Q20H IV 06/09/25 16:00 06/10/25 05:48 50 MLS/HR Diagnostic Test (Pha) 1 strip Q4HR 06/09/25 16:00 06/10/25 10:05 1 STRIP Dextrose 50 ml UD PRN IV 06/09/25 16:15 Haloperidol Lactate 2.5 mg Q8HP PRN IM 06/09/25 21:30 7/17/25 22:25 2.5 MG Insulin Human Regular Q4HR SC 06/10/25 02:00 06/10/25 10:01 6 UNITS Examination: GENERAL:Abnormal, CVS:Normal, ABDOMEN:Normal, NEURO:Abnormal laboratory and microbiology Laboratory Tests 06/10/25 10:15 Test 06/10/25 10:15 Range/Units Serum Glucose 260 H 74-106 mg/dL Microbiology Date/Time Source Procedure Growth Status 06/09/25 14:40 Urine - [place] Urine Culture - Preliminary Resulted 06/09/25 01:31 Nose MRSA Screen - Final Complete 06/08/25 17:53 Blood Blood Culture - Preliminary NO GROWTH AFTER 24 HOURS OF INCUBATION. Resulted Problem List/Assessment/Plan Problem List/Assessment/Plan 70-year-old transgender female presents to the hospital with altered mental status in setting of ketoacidosis Acute kidney injury prerenal setting of volume depletion Shock in the setting of diabetic ketoacidosis Altered mental status Anion gap metabolic acidosis Hypokalemia Hypernatremia remains altered Currently has Morelos catheter monitoring urinary output, once Morelos catheter is removed if patient has urinary retention suspect the possibility of retained prostate post gender affirming surgery. Would recommend kidney /bladder US at that time. subcu insulin sliding scale given NPO will continue D5W 0.45%NACL KPHOS replacement Monitor urinary output Neurology evaluation currently ongoing Critically ill but no indication for dialysis at this time as renal function is improving. Plan discussed with: Other My Orders My Orders Orders - RITCHIE VELAZQUEZ MD Procedure Category Date Status Time D5w/Sod Chl 0.45% PHA 06/09/25 In Process (D5w 1/2ns) 16:00 Glucose Blood PHA 06/09/25 In Process (Accu-Chek Comfort 16:00 Dextrose 50% Syringe PHA 06/09/25 In Process 16:15 Basic Metabolic Panel LAB 06/11/25 Verified 04:00 Potassium Phosphate PHA 06/10/25 Transmitted 11:30 Critical Care Time (mins): 33 RITCHIE VELAZQUEZ MD Jun 10, 2025 11:26
[2025-06-10] MEDS: POTASSIUM PHOSPHATE 22 MEQ in SODIUM CHL 0.9% 100 ML IV ONE (11:30)
[2025-06-10] MEDS ORDERED: POTASSIUM CHLORIDE 20 MEQ, LIDOCAINE 1% (LOCAL ANESTH.) 2 ML in SODIUM CHL 0.9% 100 ML IV ONE (14:45)
--- NOTE | 2025-06-10 15:03 | DVH ---
BILATERAL Lower Extremity Arterial Duplex Date: 06/10/2025 01:52 PM Clinical History: Pain Comparison: None Technique: Duplex Doppler evaluation including color Doppler and spectral/pulsed waveform analysis of the lower extremity arteries was performed. Finding: RIGHT: Peak systolic velocities are as follows: Subclavian artery: 93 m/sec triphasic waveform Right axillary artery: 156 m/sec triphasic waveform Right brachial artery: 99 m/sec triphasic waveform Right radial artery: 82 m/sec triphasic waveform Right ulnar artery: 98 m/sec triphasic waveform IMPRESSION: 1. There are no findings to suggest occlusion of the arterial system in the right upper extremity or any measurable significant stenosis. 2. No significant focal stenosis is identified. HS:Y
--- NOTE | 2025-06-10 15:06 | DVHPN2 ---
Progress Note Date Seen: Jun 10, 2025 Resident Creating Document: JOSSELIN JUNG RESDIENT Medical Necessity Reason Pt with a Central, PICC or Fol: Yes The following are medically ne: Morelos Catheter Reason for morelos catheter: Strict I&O Subjective Review of Systems Patient seen and examined at bedside. Patient is feeling better since admission but still confused and can not provide proper history. Objective vital signs Vital Sign Date Time Temp Pulse Resp B/P (MAP) Pulse Ox O2 Delivery O2 Flow Rate FiO2 06/10/25 14:00 98 06/10/25 14:00 24 93 Room Air* 0 21 06/10/25 14:00 142/62 (88) 06/10/25 12:00 97.8 97.8 Total Intake and Output 06/09/25 06/09/25 06/10/25 15:00 23:00 07:00 Intake Total 1885.0 ml 450 ml 400 ml Output Total 1400 ml 1000 ml Balance 1885.0 ml -950 ml -600 ml medications Current Medications Medications Dose Ordered Sig/Elizabeth Route Start Time Stop Time Status Last Admin Dose Admin Insulin Glargine 15 units DAILY SC 06/09/25 10:00 06/10/25 10:05 15 UNITS Cefepime HCl 50 ml @ 12.5 mls/hr DAILY IV 06/09/25 10:00 06/10/25 09:59 12.5 MLS/HR Nitroglycerin 0.4 mg Q5MINP PRN SL 06/08/25 20:00 Morphine Sulfate 2 mg Q30M PRN IV 06/08/25 20:00 Ondansetron HCl 4 mg Q4HP PRN IV 06/08/25 20:15 Enoxaparin Sodium 40 mg DAILY SC 06/10/25 10:00 06/10/25 10:05 40 MG Aspirin 81 mg DAILY PO 06/10/25 10:00 06/10/25 09:59 81 MG Pantoprazole Sodium 40 mg DAILY IV 06/10/25 10:00 06/10/25 09:59 40 MG Dextrose/Sodium Chloride 1,000 ml @ 50 mls/hr Q20H IV 06/09/25 16:00 06/10/25 05:48 50 MLS/HR Diagnostic Test (Pha) 1 strip Q4HR 06/09/25 16:00 06/10/25 14:13 1 STRIP Dextrose 50 ml UD PRN IV 06/09/25 16:15 Haloperidol Lactate 2.5 mg Q8HP PRN IM 06/09/25 21:30 06/10/25 13:27 2.5 MG Insulin Human Regular Q4HR SC 06/10/25 02:00 06/10/25 14:26 12 UNITS Magnesium Sulfate/ Dextrose 100 ml @ 100 mls/hr Q1HR IV 06/10/25 15:00 06/10/25 16:59 Examination General Appearance: Alert, Oriented X3, Cooperative, No acute distress HEENT: Atraumatic, PERRLA, EOMI, Mucous membrane moist/pink Respiratory: Clear to auscultation, Normal air movement Cardiovascular: Regular rate, Normal S1, Normal S2, No murmurs, no chest wall tenderness Abdominal: Normal bowel sounds, Soft, No tenderness, No hepatospenomegaly, No masses Extremities: No clubbing, No cyanosis, No edema, Normal pulses, No tenderness/swelling Skin: No rashes, No breakdown, No significant lesion Neuro: Normal gait, Normal speech, Strength at 5/5 X4 ext, Normal tone, Sensation intact, Cranial nerves 3-12 NL, Reflexes 2+ Psych/Mental Status: Mental status NL, Mood NL laboratory and microbiology Laboratory Tests 06/10/25 10:15 Test 06/10/25 10:15 Range/Units Serum Glucose 260 H 74-106 mg/dL Microbiology Date/Time Source Procedure Growth Status 06/09/25 14:40 Urine - [place] Urine Culture - Preliminary Resulted 06/09/25 13:50 Blood Blood Culture - Preliminary NO GROWTH AFTER 24 HOURS OF INCUBATION. Resulted 06/09/25 01:31 Nose MRSA Screen - Final Complete Labs and/or images reviewed: Labs reviewed by me, Image(s) reviewed by me Problem List/Assessment/Plan Problem List/Assessment/Plan Acute metabolic encephalopathy, likely due to DKA Uncontrolled diabetes type 2 with DKA NSTEMI, likely type 2 due to above Hypovolemia YESSI, possibly on CKD, baseline record not available, VMN * EKGs shows sinus tachycardia with no significant ST or T-wave changes * Trop I is raised at 1000s, downtrending Plan/Recommendation (Case discussed with Dr. Osuna) * Aspirin and atorvastatin * Lovenox prophylactic dose * In context of normal echo, the patient does not need further cardiology workup at the moment * Rest of plan Per primary team Thank you for giving us the opportunity due to take care of your patient. Please call back if you have any questions/concerns. Plan discussed with: Patient, Spouse (RN), Other My Orders My Orders Orders - JOSSELIN JUNG RESANKIAT Procedure Category Date Status Time Potassium Chloride PHA 06/10/25 Logged (Potassium Chloride). 14:45 Magnesium Sulfate PHA 06/10/25 In Process 1gm/100ml 15:00 Dietary Evaluation Review Comments: 1) Advance to [facility] 75gm + cardiac diet as medically feasible 2) Refer Client Support Professional for diabetes education Expected Outcomes/Goals: To meet >75% estimated needs Fu 2-3 days JOSSELIN JUNG RESDICHRISTOFER Jun 10, 2025 15:06
--- NOTE | 2025-06-10 15:11 | DVHPN2 ---
Assessment/Plan Assessment/Plan ICU note 70 MtF admitted for DKA Covering for dr Fernandez gap closed, slightly confused, alert, answers questions but disoriented physical exam alert, disoriented PERRLA MMM rhonchi b/l s1 s2 rrr abdomen soft nontender no le edema RUE edema around IV site labs ekg imaging reviewed assessment and plan DKA IDDM metabolic acidosis metabolic encephalopathy YESSI on CKD HTN male to female transgender sepsis pna gp vs gn hld chronic pain type 2 FL hx of prostate cancer adjust insulin, off drip iv fluid d5 to LR resume home meds c/w cefepime delirium precaution Haldol PRN agitation swallow eval diet NPO dvt ppx lovenox full code critical care time 35 minutes Plan discussed with: Spouse My Orders Orders - ALINE HENRY MD Procedure Category Date Status Time Insulin Lantus PHA 06/11/25 Verified (Glargine) (Lantus) 10:00 Lactated Ringers Lr PHA 06/10/25 Verified 15:15 Insulin Lispro PHA 06/10/25 Verified (Human) (Humalog) 18:00 Complete Blood Count LAB 06/11/25 Verified 04:00 Comprehensive LAB 06/11/25 Verified Metabolic Panel 04:00 Phosphorus LAB 06/11/25 Verified 04:00 Date of Service: Jun 10, 2025 Billing Provider: ALINE HENRY MD Common Visit Codes: 40420-[id number] CARE 30-74 MIN ALINE HENRY MD Jun 10, 2025 15:11
[2025-06-10] MEDS: MAGNESIUM SULFATE 1GM/100ML 100 ML IV SCH (16:41)
[2025-06-10] MEDS: LACTATED RINGER'S 1,000 ML IV SCH (17:51)
[2025-06-10] MEDS: INSULIN LISPRO (HUMAN) 100 UNITS/ML ML SC SCH (17:57)
--- NOTE | 2025-06-10 20:49 | DVHPN2 ---
Progress Note - Dictate Date Seen: Jun 10, 2025 Medical Necessity Reason Pt with a Central, PICC or Fol: Yes The following are medically ne: Morelos Catheter Reason for morelos catheter: Strict I&O Subjective Hermes only is 70 years old with a history of hypertension, diabetes, dyslipidemia, bladder cancer, the patient was admitted to the [facility] on 06/08/2025 with a chief company of altered mental status. I have seen and examined the patient, I have talked to her nurse and sitter, she is better today, she has been on some questions properly, she is oriented to person only follow verbal commands T-max, 100.5 [phone], wrong number. [phone] Blood culture, 06/09/25: Urine culture, 06/09/2025: UDS, 06/09/2025: Cannabinoids Urinalysis, 06/08/2025: WBC: One, urine leukocyte esterase: Negative ABG, 06/08/2025: Metabolic acidosis, 06/09/2025: Metabolic acidosis WBC/HB/PLT/MCV, 06/09/2025: 18.1/14.5/271/94.7 PT/INR/PTT, 06/08/2025: 11.4/1.08/33.2, 06/09/2025: 12.2/1.17/125.3, 06/09/2025: 11.4/1.08/40 Na 06/08/2025: 125, 136, 06/09/2025: 140, 148, 149 K 06/08/2025: 7.2, four, 06/09/2025: 3.4, 2.7, 3.9 BUN/CR, 06/09/2025: 40/2.26, 06/09/2025: 43/2 Glucose, 06/08/2025: 1233, 835, 06/09/2025: 804, 247, 151 Lactic acid, 06/08/2025: 5.5, 4.7 HGB A1c, 06/09/2025: 10.6 TBI/AST/ALT/AP, 06/08/2025: 0.2/67/68/133 TSH, 06/09/2025: 1.04 Beta hydroxybutyric acid 06/08/2025: >4.5 vital signs Vital Sign Date Time Temp Pulse Resp B/P (MAP) Pulse Ox O2 Delivery O2 Flow Rate FiO2 06/10/25 19:30 97 17 99 06/10/25 18:00 Room Air* 0 21 06/10/25 16:00 99.2 99.2 Total Intake and Output 06/09/25 06/09/25 06/10/25 15:00 23:00 07:00 Intake Total 1885.0 ml 450 ml 400 ml Output Total 1400 ml 1000 ml Balance 1885.0 ml -950 ml -600 ml medications Current Medications Medications Dose Ordered Sig/Elizabeth Route Start Time Stop Time Status Last Admin Dose Admin Cefepime HCl 50 ml @ 12.5 mls/hr DAILY IV 06/09/25 10:00 06/10/25 09:59 12.5 MLS/HR Nitroglycerin 0.4 mg Q5MINP PRN SL 06/08/25 20:00 Morphine Sulfate 2 mg Q30M PRN IV 06/08/25 20:00 Ondansetron HCl 4 mg Q4HP PRN IV 06/08/25 20:15 Enoxaparin Sodium 40 mg DAILY SC 06/10/25 10:00 06/10/25 10:05 40 MG Aspirin 81 mg DAILY PO 06/10/25 10:00 06/10/25 09:59 81 MG Pantoprazole Sodium 40 mg DAILY IV 06/10/25 10:00 06/10/25 09:59 40 MG Diagnostic Test (Pha) 1 strip Q4HR 06/09/25 16:00 06/10/25 18:13 1 STRIP Dextrose 50 ml UD PRN IV 06/09/25 16:15 Haloperidol Lactate 2.5 mg Q8HP PRN IM 06/09/25 21:30 06/10/25 13:27 2.5 MG Insulin Glargine 20 units DAILY SC 06/11/25 10:00 Lactated Ringer's 1,000 ml @ 75 mls/hr [id number] IV 06/10/25 15:15 06/10/25 17:51 75 MLS/HR Insulin Human Lispro Q4HR SC 06/10/25 18:00 06/10/25 17:57 9 UNITS objective General: the patient is well developed and nourished. No acute distress. MENTAL STATUS: Subjective SPEECH, LANGUAGE, HIGHER CORTICAL FUNCTION: no aphasia or dysathria. CRANIAL NERVES: Pupils are equal, round and reactive. EOMs full and conjugate. Facial sensation intact in all three divisions bilaterally. Mandibular strength intact. Facial muscles symmetrical and strength intact. SENSATION: Sensation to touch and pinprick is okay MOTOR: Normal tone in the upper and lower extremity. Normal muscle bulk. No fasciculations. No abnormal movements or posturing. Muscle strength of the major groups in the extremities is 5/5. REFLEXES: Deep tendon reflexes are symmetrical. No pathological reflexes. CEREBELLAR/COORDINATION: Deferred GAIT/STATION: deferred. laboratory and microbiology Laboratory Tests 06/10/25 10:15 Test 06/10/25 10:15 Range/Units Serum Glucose 260 H 74-106 mg/dL Problem List Altered mental status, likely metabolic encephalopathy secondary to Diabetic ketoacidosis Metabolic acidosis Hypoglycemia Dehydration Hyponatremia, hypernatremia Fever/leukocytosis/sepsis Acute kidney failure Assessment/Plan Monitoring Supportive treatment CRISTIAN care IV antibiotics Correct metabolic acidosis Haldol 2.5 mg intramuscular Q 8 hours as needed for agitation EEG Nephrology on case More recommendation per clinical course Progress: Poor This medical document was created using an electronic medical record system with [employer] computerized dictation system. Although this document has been carefully reviewed, there may still be some phonetic and typographical errors. These areas are purely typographical due to imperfections of the software programs, and do not reflect any compromise in the patient's medical care. Prognosis poor Dietary Evaluation Review Comments: 1) Advance to [facility] 75gm + cardiac diet as medically feasible 2) Refer Manager Garden for diabetes education Expected Outcomes/Goals: To meet >75% estimated needs Fu 2-3 days Plan discussed with: Other ANDRÉS THOMAS MD Jun 10, 2025 20:49
--- NOTE | 2025-06-10 23:45 | DVHPN2 ---
Progress Note - Dictate Date Seen: Jun 10, 2025 Medical Necessity Reason Pt with a Central, PICC or Fol: Yes The following are medically ne: Morelos Catheter Reason for morelos catheter: Strict I&O Subjective Patient was seen and evaluated in follow up in the ICU. Patient is on 2 LPM NC. Overnight, the patient became agitated, grabbing nursing staff, attempting to pull/bite off mittens and getting out of bed. Patient remains confused. WBC 11, NA 147, K 3.4, BUN 28, SHIPPING LEAD PERSON 1.28, GLUC 335, AST 179, ALT 71, TROP 1337. vital signs Vital Sign Date Time Temp Pulse Resp B/P (MAP) Pulse Ox O2 Delivery O2 Flow Rate FiO2 06/10/25 14:00 98 06/10/25 14:00 24 93 Room Air* 0 21 06/10/25 14:00 142/62 (88) 06/10/25 12:00 97.8 97.8 Total Intake and Output 06/09/25 06/09/25 06/10/25 15:00 23:00 07:00 Intake Total 1885.0 ml 450 ml 400 ml Output Total 1400 ml 1000 ml Balance 1885.0 ml -950 ml -600 ml medications Current Medications Medications Dose Ordered Sig/Elizabeth Route Start Time Stop Time Status Last Admin Dose Admin Cefepime HCl 50 ml @ 12.5 mls/hr DAILY IV 06/09/25 10:00 06/10/25 09:59 12.5 MLS/HR Nitroglycerin 0.4 mg Q5MINP PRN SL 06/08/25 20:00 Morphine Sulfate 2 mg Q30M PRN IV 06/08/25 20:00 Ondansetron HCl 4 mg Q4HP PRN IV 06/08/25 20:15 Enoxaparin Sodium 40 mg DAILY SC 06/10/25 10:00 06/10/25 10:05 40 MG Aspirin 81 mg DAILY PO 06/10/25 10:00 06/10/25 09:59 81 MG Pantoprazole Sodium 40 mg DAILY IV 06/10/25 10:00 06/10/25 09:59 40 MG Diagnostic Test (Pha) 1 strip Q4HR 06/09/25 16:00 06/10/25 18:13 1 STRIP Dextrose 50 ml UD PRN IV 06/09/25 16:15 Haloperidol Lactate 2.5 mg Q8HP PRN IM 06/09/25 21:30 06/10/25 13:27 2.5 MG Insulin Glargine 20 units DAILY SC 06/11/25 10:00 Lactated Ringer's 1,000 ml @ 75 mls/hr [id number] IV 06/10/25 15:15 06/10/25 17:51 75 MLS/HR Insulin Human Lispro Q4HR SC 06/10/25 18:00 06/10/25 17:57 9 UNITS objective GENERAL: Alert and oriented x 1. No acute distress. EYES: PERRL, EOMI. Anicteric. HENT: Moist mucous membranes. LUNGS: Clear to auscultation bilaterally. CARDIOVASCULAR: Regular rate and rhythm. ABDOMEN: Soft, nontender and nondistended. EXTREMITIES: No edema. SKIN: Warm, dry. laboratory and microbiology Laboratory Tests 06/10/25 10:15 Test 06/10/25 10:15 Range/Units Serum Glucose 260 H 74-106 mg/dL Problem List Acute metabolic encephalopathy, likely due to DKA. Uncontrolled diabetes type 2 with DKA. NSTEMI, likely type 2 due to above. Hypovolemia. YESSI, possibly on CKD, baseline record not available, VMN. Assessment/Plan Continued all current supportive medical care. Patient has been seen by Yanet Starkey Resident on my behalf, we have discussed the plan with the patient Aspirin and atorvastatin. Lovenox prophylactic dose. In context of normal echo, the patient does not need further cardiology workup at the moment. Rest of plan Per primary team. Additional plan as per the hospital course. Critical care time of 45 minutes provided to include time spent evaluation of patient at bedside, when appropriate patient/family education for diagnosis, treatment plan, review of pertinent medical information and discussion of care with specialty providers and PCP. Dietary Evaluation Review Comments: 1) Advance to [facility] 75gm + cardiac diet as medically feasible 2) Refer Rubber Goods Cutter Finisher for diabetes education Expected Outcomes/Goals: To meet >75% estimated needs Fu 2-3 days Plan discussed with: Other VIN KHAN MD Jun 10, 2025 18:32
[2025-06-11] VITALS (65 sets, daily range): BP systolic 125–174; BP diastolic 58–99; PULSE 87–107; RESP 12–37; TEMP 97.8–98.7; O2SAT 94–100
[2025-06-11 05:58] LABS: Hematocrit 37.5 % (36.0-46.0); Hemoglobin 12.6 g/dL (12.2-16.2); Mean Corpuscular Hemoglobin 29.8 pg (28.0-32.0); Mean Corpuscular Volume 88.7 fL (80.0-100.0); Nucleated Red Blood Cells % 0.1 %
[2025-06-11 06:20] LABS: Albumin 3.6 g/dL (3.2-4.8); Alkaline Phosphatase 98 U/L (46-116); Anion Gap 14 (5-15); BUN/Creatinine Ratio 18.5 (10.0-20.0); Blood Urea Nitrogen 20 mg/dL (9-23); Carbon Dioxide 23 mmol/L (20-31); Magnesium 2.0 mg/dL (1.6-2.6); Potassium 3.6 mmol/L (3.5-5.1)
[2025-06-11 06:21] LABS: Alanine Aminotransferase 66 U/L (7-40); Bilirubin, Total 0.6 mg/dL (0.2-1.0); Calcium 8.5 mg/dL (8.7-10.4); Chloride 110 mmol/L (98-107); Glucose 281 mg/dL (74-106); Sodium 147 mmol/L (136-145); Total Protein 5.5 g/dL (5.7-8.2)
[2025-06-11] MEDS: INSULIN LANTUS (GLARGINE) 1 /0.01ml (100units/ml) SC SCH (10:05)
--- NOTE | 2025-06-11 12:17 | DVHPN2 ---
Progress Note Date Seen: Jun 11, 2025 Medical Necessity Reason Pt with a Central, PICC or Fol: Yes The following are medically ne: Morelos Catheter Reason for morelos catheter: Strict I&O Subjective Patient reports: Feels better Objective vital signs Vital Sign Date Time Temp Pulse Resp B/P (MAP) Pulse Ox O2 Delivery O2 Flow Rate FiO2 06/11/25 11:38 89 06/11/25 11:38 19 97 Room Air* 0 21 06/11/25 08:00 98.6 143/77 (99) 98.6 Total Intake and Output 06/10/25 06/10/25 06/11/25 15:00 23:00 07:00 Intake Total 465.00 ml 728.75 ml 450 ml Output Total 1000 ml 750 ml Balance 465.00 ml -271.25 ml -300 ml medications Current Medications Medications Dose Ordered Sig/Elizabeth Route Start Time Stop Time Status Last Admin Dose Admin Cefepime HCl 50 ml @ 12.5 mls/hr DAILY IV 06/09/25 10:00 06/11/25 10:04 12.5 MLS/HR Nitroglycerin 0.4 mg Q5MINP PRN SL 06/08/25 20:00 Morphine Sulfate 2 mg Q30M PRN IV 06/08/25 20:00 Ondansetron HCl 4 mg Q4HP PRN IV 06/08/25 20:15 Enoxaparin Sodium 40 mg DAILY SC 06/10/25 10:00 06/11/25 10:04 40 MG Aspirin 81 mg DAILY PO 06/10/25 10:00 06/11/25 10:04 81 MG Pantoprazole Sodium 40 mg DAILY IV 06/10/25 10:00 06/11/25 10:04 40 MG Diagnostic Test (Pha) 1 strip Q4HR 06/09/25 16:00 06/11/25 10:05 1 STRIP Dextrose 50 ml UD PRN IV 06/09/25 16:15 Haloperidol Lactate 2.5 mg Q8HP PRN IM 06/09/25 21:30 06/10/25 22:24 2.5 MG Insulin Glargine 20 units DAILY SC 06/11/25 10:00 06/11/25 10:05 20 UNITS Lactated Ringer's 1,000 ml @ 75 mls/hr [id number] IV 06/10/25 15:15 06/11/25 05:00 75 MLS/HR Insulin Human Lispro Q4HR SC 06/10/25 18:00 06/11/25 10:05 7 UNITS Examination: GENERAL:Abnormal, CVS:Normal, SKIN:Normal, NEURO:Abnormal laboratory and microbiology Laboratory Tests 06/11/25 05:06 Test 06/11/25 05:06 Range/Units Serum Glucose 281 H 74-106 mg/dL Microbiology Date/Time Source Procedure Growth Status 06/09/25 14:40 Urine - Omrelos Port Urine Culture - Final Complete 06/09/25 13:50 Blood Blood Culture - Preliminary NO GROWTH AFTER 24 HOURS OF INCUBATION. Resulted 06/09/25 01:31 Nose MRSA Screen - Final Complete Problem List/Assessment/Plan Problem List/Assessment/Plan 70-year-old transgender female presents to the hospital with altered mental status in setting of ketoacidosis Acute kidney injury prerenal setting of volume depletion Shock in the setting of diabetic ketoacidosis Altered mental status Anion gap metabolic acidosis Hypokalemia Hypernatremia YESSI has resolved currently on fluids if Na rises rec change to hypotonic fluids still NPO Neurology evaluation currently ongoing Plan discussed with: Other Dietary Evaluation Review Comments: 1) Advance to [facility] 75gm + cardiac diet as medically feasible 2) Refer Naphtha Washing System Operator for diabetes education Expected Outcomes/Goals: To meet >75% estimated needs Fu 2-3 days Total Time (mins): 37 RITCHIE VELAZQUEZ MD Jun 11, 2025 12:17
--- NOTE | 2025-06-11 14:00 | DVHPN2 ---
Assessment/Plan Assessment/Plan ICU note 70 MtF admitted for DKA Covering for dr Fernandez seen today during rounds, less agitated, still confused. strong cough, passed bedside swallow. transfer tele. switch to basal bolus physical exam aox1 PERRLA MMM rhonchi b/l s1 s2 rrr abdomen soft nontender no le edema RUE edema around IV site labs ekg imaging reviewed assessment and plan DKA IDDM metabolic acidosis metabolic encephalopathy YESSI on CKD HTN male to female transgender sepsis pna gp vs gn hld chronic pain type 2 WA hx of prostate cancer adjust insulin, off drip now on basal bolus iv fluid d5 to LR resume home meds c/w cefepime delirium precaution Haldol PRN agitation diet cardiac dvt ppx lovenox full code critical care time 32 minutes Plan discussed with: Patient, Spouse My Orders Orders - ALINE HENRY MD Procedure Category Date Status Time Insulin Lantus PHA 06/11/25 In Process (Glargine) (Lantus) 10:00 Lactated Ringer's PHA 06/10/25 In Process 15:15 Insulin Lispro PHA 06/10/25 In Process (Human) (Humalog) 18:00 * Swallow Request ST 06/10/25 Transmitted 15:11 Insert Midline ORDERS 06/10/25 Transmitted 15:11 Cardiac DIET 06/11/25 Verified Diet-2gna,Lofat,Lochol Dinner Transfer Orders XFER 06/11/25 Verified 13:57 Insulin Lispro PHA 06/11/25 Verified (Human) (Humalog) 17:00 Insulin Lispro PHA 06/11/25 Verified (Human) (Humalog) 17:00 Date of Service: Jun 11, 2025 Billing Provider: ALINE HENRY MD Common Visit Codes: [id number] CARE 30-74 MIN ALINE HENRY MD Jun 11, 2025 14:00
--- NOTE | 2025-06-11 16:25 | DVHSR ---
APPROVED REPORT EXAM: Two-dimensional and M-mode echocardiogram with Doppler and color Doppler. Blood Pressure: 118/58 mmHg INDICATION nstemi RISK FACTORS Height: 6', Weight: 217 DIMENSIONS LVDd4.1 (3.8-5.7cm)LA (2D) (1.9-4.0cm)Aortic Root (2.0-3.7cm) LVDs3.0 (2.5-4.0cm)LA (MM) (1.9-4.0cm)Aortic Cusp Exc (1.5-2.0cm) EF (%) 60.0 (55-70%)Rt. Atrium (1.9-4.0cm)Asc. Aorta cm IVSd1.1 (0.7-1.1cm)RV (D) (1.8-2.4cm) PWd0.9 (0.7-1.1cm) Mitral Valve MitralMitral Stenosis E/A ratio0.02D MVAcm2 Other Information Quality : Technically LimitedRhythm : Technically limited study due to body habitus, patient position, patient moving and confused. Conclusion LVEF 60-65%, mild LVH. RV normal valves not well visualized,
[2025-06-11] MEDS: ACCU-CHEK COMFORT CURVE STRIP VI SCH (17:20)
[2025-06-11] MEDS: INSULIN LISPRO (HUMAN) 100 UNITS/ML ML SC SCH ×2 (17:21)
[2025-06-11] MEDS: CEFEPIME 1GM/ 50ML 50 ML IV SCH (18:36)
--- NOTE | 2025-06-11 23:30 | DVHPN2 ---
Progress Note - Dictate Date Seen: Jun 11, 2025 Medical Necessity Reason Pt with a Central, PICC or Fol: Yes The following are medically ne: Morelos Catheter Reason for morelos catheter: Strict I&O Subjective Hermes Louis is a 70 years old with a history of hypertension, diabetes, dyslipidemia, bladder cancer, the patient was admitted to the [facility] on 06/08/2025 with a chief company of altered mental status. I have seen and examined the patient, I have talked to her nurse and sitter, she is better today, she is oriented to person, she knows that she is not at home. Reasonable social skills Afebrile Blood culture, 06/09/25: Urine culture, 06/09/2025: UDS, 06/09/2025: Cannabinoids Urinalysis, 06/08/2025: WBC: One, urine leukocyte esterase: Negative ABG, 06/08/2025: Metabolic acidosis, 06/09/2025: Metabolic acidosis WBC/HB/PLT/MCV, 06/08/2025: 26.7/13.3/329/106.8, 06/09/2025: 18.1/14.5/271/94.7, 06/11/2025: 7.5/12.6/188/88.7 PT/INR/PTT, 06/08/2025: 11.4/1.08/33.2, 06/09/2025: 12.2/1.17/125.3, 06/09/2025: 11.4/1.08/40 Na 06/08/2025: 125, 136, 06/09/2025: 140, 148, 149 K 06/08/2025: 7.2, four, 06/09/2025: 3.4, 2.7, 3.9 BUN/CR, 06/09/2025: 40/2.26, 06/09/2025: 43/2 Glucose, 06/08/2025: 1233, 835, 06/09/2025: 804, 247, 151 Lactic acid, 06/08/2025: 5.5, 4.7 HGB A1c, 06/09/2025: 10.6 TBI/AST/ALT/AP, 06/08/2025: 0.2/67/68/133 TSH, 06/09/2025: 1.04 Beta hydroxybutyric acid 06/08/2025: >4.5 vital signs Vital Sign Date Time Temp Pulse Resp B/P (MAP) Pulse Ox O2 Delivery O2 Flow Rate FiO2 06/11/25 21:00 98.2 98 17 130/76 (94) 94 98.2 06/11/25 20:00 Nasal Cannula* 2 28 Total Intake and Output 06/10/25 06/10/25 06/11/25 15:00 23:00 07:00 Intake Total 465.00 ml 728.75 ml 450 ml Output Total 1000 ml 750 ml Balance 465.00 ml -271.25 ml -300 ml medications Current Medications Medications Dose Ordered Sig/Elizabeth Route Start Time Stop Time Status Last Admin Dose Admin Nitroglycerin 0.4 mg Q5MINP PRN SL 06/08/25 20:00 Morphine Sulfate 2 mg Q30M PRN IV 06/08/25 20:00 Ondansetron HCl 4 mg Q4HP PRN IV 06/08/25 20:15 Enoxaparin Sodium 40 mg DAILY SC 06/10/25 10:00 06/11/25 10:04 40 MG Aspirin 81 mg DAILY PO 06/10/25 10:00 06/11/25 10:04 81 MG Pantoprazole Sodium 40 mg DAILY IV 06/10/25 10:00 06/11/25 10:04 40 MG Dextrose 50 ml UD PRN IV 06/09/25 16:15 Haloperidol Lactate 2.5 mg Q8HP PRN IM 06/09/25 21:30 06/10/25 22:24 2.5 MG Insulin Glargine 20 units DAILY SC 06/11/25 10:00 06/11/25 10:05 20 UNITS Lactated Ringer's 1,000 ml @ 75 mls/hr [id number] IV 06/10/25 15:15 06/11/25 18:36 75 MLS/HR Insulin Human Lispro 5 units AC SC 06/11/25 17:00 06/11/25 17:21 5 UNITS Insulin Human Lispro AC SC 06/11/25 17:00 06/11/25 17:21 4 UNITS Diagnostic Test (Pha) 1 strip AC 06/11/25 17:00 7/19/25 17:20 1 STRIP Cefepime HCl 50 ml @ 12.5 mls/hr Q8H IV 06/11/25 18:00 06/11/25 18:36 12.5 MLS/HR objective General: the patient is well developed and nourished. No acute distress. MENTAL STATUS: Subjective SPEECH, LANGUAGE, HIGHER CORTICAL FUNCTION: no aphasia or dysathria. CRANIAL NERVES: Pupils are equal, round and reactive. EOMs full and conjugate. Facial sensation intact in all three divisions bilaterally. Mandibular strength intact. Facial muscles symmetrical and strength intact. SENSATION: Sensation to touch and pinprick is okay MOTOR: Normal tone in the upper and lower extremity. Normal muscle bulk. No fasciculations. No abnormal movements or posturing. Muscle strength of the major groups in the extremities is 5/5. REFLEXES: Deep tendon reflexes are symmetrical. No pathological reflexes. CEREBELLAR/COORDINATION: Deferred GAIT/STATION: deferred. laboratory and microbiology Laboratory Tests 06/11/25 05:06 Test 06/11/25 05:06 Range/Units Serum Glucose 281 H 74-106 mg/dL Problem List Altered mental status, likely metabolic encephalopathy secondary to Diabetic ketoacidosis Metabolic acidosis Hypoglycemia Dehydration Hyponatremia, hypernatremia Fever/leukocytosis/sepsis Acute kidney failure Assessment/Plan Monitoring Supportive treatment Telemetry IV antibiotics Glucose control Haldol 2.5 mg intramuscular Q 8 hours as needed for agitation EEG Nephrology on case More recommendation per clinical course This medical document was created using an electronic medical record system with [employer] dictation system. Although this document has been carefully reviewed, there may still be some phonetic and typographical errors. These areas are purely typographical due to imperfections of the software programs, and do not reflect any compromise in the patient's medical care. Prognosis poor Dietary Evaluation Review Comments: 1) Advance to [facility] 75gm + cardiac diet as medically feasible 2) Refer Corporate Bond Trader for diabetes education Expected Outcomes/Goals: To meet >75% estimated needs Fu 2-3 days Plan discussed with: Other ANDRÉS THOMAS MD Jun 11, 2025 23:30
[2025-06-12] VITALS (7 sets, daily range): BP systolic 126–145; BP diastolic 68–88; PULSE 93–100; RESP 16–18; TEMP 97.8–98.4; O2SAT 93–100
[2025-06-12 06:14] LABS: Hematocrit 37.3 % (36.0-46.0); Hemoglobin 12.5 g/dL (12.2-16.2); Mean Corpuscular Hemoglobin 30.3 pg (28.0-32.0); Mean Corpuscular Volume 90.3 fL (80.0-100.0); Nucleated Red Blood Cells % 0.2 %
[2025-06-12 06:29] LABS: Anion Gap 17 (5-15); Calcium 9.4 mg/dL (8.7-10.4); Carbon Dioxide 19 mmol/L (20-31); Chloride 102 mmol/L (98-107); Potassium 3.8 mmol/L (3.5-5.1); Sodium 138 mmol/L (136-145)
[2025-06-12 06:35] LABS: BUN/Creatinine Ratio 15.1 (10.0-20.0); Blood Urea Nitrogen 16 mg/dL (9-23)
[2025-06-12 06:41] LABS: Glucose 404 mg/dL (74-106)
--- NOTE | 2025-06-12 09:08 | DVHPN2 ---
Progress Note Date Seen: Jun 12, 2025 Medical Necessity Reason Pt with a Central, PICC or Fol: Yes The following are medically ne: Morelos Catheter Reason for morelos catheter: Strict I&O Subjective Patient reports: Feels better Objective vital signs Vital Sign Date Time Temp Pulse Resp B/P (MAP) Pulse Ox O2 Delivery O2 Flow Rate FiO2 06/12/25 08:30 98.4 95 18 143/88 (106) 95 98.4 06/11/25 20:00 Nasal Cannula* 2 28 Total Intake and Output 06/11/25 06/11/25 06/12/25 15:00 23:00 07:00 Intake Total 600 ml 50 ml 1000 ml Output Total 1000 ml 1250 ml Balance 600 ml -950 ml -250 ml medications Current Medications Medications Dose Ordered Sig/Elizabeth Route Start Time Stop Time Status Last Admin Dose Admin Nitroglycerin 0.4 mg Q5MINP PRN SL 06/08/25 20:00 Morphine Sulfate 2 mg Q30M PRN IV 06/08/25 20:00 Ondansetron HCl 4 mg Q4HP PRN IV 06/08/25 20:15 Enoxaparin Sodium 40 mg DAILY SC 06/10/25 10:00 06/11/25 10:04 40 MG Aspirin 81 mg DAILY PO 06/10/25 10:00 06/11/25 10:04 81 MG Pantoprazole Sodium 40 mg DAILY IV 06/10/25 10:00 06/11/25 10:04 40 MG Dextrose 50 ml UD PRN IV 06/09/25 16:15 Haloperidol Lactate 2.5 mg Q8HP PRN IM 06/09/25 21:30 06/10/25 22:24 2.5 MG Insulin Glargine 20 units DAILY SC 06/11/25 10:00 06/11/25 10:05 20 UNITS Lactated Ringer's 1,000 ml @ 75 mls/hr [id number] IV 06/10/25 15:15 06/11/25 18:36 75 MLS/HR Insulin Human Lispro 5 units AC GA 06/11/25 17:00 06/12/25 06:17 5 UNITS Insulin Human Lispro AC SC 06/11/25 17:00 06/12/25 06:16 5 UNITS Diagnostic Test (Pha) 1 strip AC 06/11/25 17:00 06/12/25 06:17 1 STRIP Cefepime HCl 50 ml @ 12.5 mls/hr Q8H IV 06/11/25 18:00 06/12/25 02:04 12.5 MLS/HR Examination: GENERAL:Normal, CVS:Normal, ABDOMEN:Normal laboratory and microbiology Laboratory Tests 06/12/25 05:03 Test 06/12/25 05:03 Range/Units Serum Glucose 404 *H 74-106 mg/dL Microbiology Date/Time Source Procedure Growth Status 06/09/25 14:40 Urine - Morelos Port Urine Culture - Final Complete 06/09/25 13:50 Blood Blood Culture - Preliminary NO GROWTH AFTER 48 HOURS OF INCUBATION. Resulted 06/09/25 01:31 Nose MRSA Screen - Final Complete Problem List/Assessment/Plan Problem List/Assessment/Plan 70-year-old transgender female presents to the hospital with altered mental status in setting of ketoacidosis Acute kidney injury prerenal setting of volume depletion Shock in the setting of diabetic ketoacidosis Hypokalemia Hypernatremia YESSI has resolved encourage po remove morelos catheter, ensure UOP post removal Neurology evaluation currently ongoing Plan discussed with: Patient My Orders My Orders Orders - RITCHIE VELAZQUEZ MD Procedure Category Date Status Time D/C Omrelos LUPIS 06/12/25 Transmitted 09:05 Dietary Evaluation Review Comments: 1) Advance to [facility] 75gm + cardiac diet as medically feasible 2) Refer Mandrel Maker for diabetes education Expected Outcomes/Goals: To meet >75% estimated needs Fu 2-3 days Total Time (mins): 30 RITCHIE VELAZQUEZ MD Jun 12, 2025 09:07
[2025-06-12] MEDS: INSULIN LISPRO (HUMAN) 100 UNITS/ML ML SC ONE (10:00)
[2025-06-12] MEDS: INSULIN LANTUS (GLARGINE) 1 /0.01ml (100units/ml) SC SCH (11:06)
[2025-06-12] MEDS: INSULIN LISPRO (HUMAN) 100 UNITS/ML ML SC SCH ×2 (11:30)
--- NOTE | 2025-06-12 14:10 | DVHPN2 ---
Assessment/Plan Assessment/Plan ICU note 70 MtF admitted for DKA Covering for dr Fernandez seen today during rounds, more awake, comfortable, less confused. high BG reading, adjusted insulin, given stat dose. stable for transfer physical exam aox3 PERRLA MMM rhonchi b/l s1 s2 rrr abdomen soft nontender no le edema RUE edema around IV site labs ekg imaging reviewed assessment and plan DKA IDDM metabolic acidosis metabolic encephalopathy YESSI on CKD HTN male to female transgender sepsis pna gp vs gn hld chronic pain type 2 MD hx of prostate cancer adjust insulin, off drip now on basal bolus iv fluid d5 to LR resume home meds c/w cefepime delirium precaution Haldol PRN agitation diet cardiac dvt ppx lovenox full code Plan discussed with: Patient, Spouse My Orders Orders - ALINE HENRY MD Procedure Category Date Status Time Glucose Blood PHA 06/11/25 In Process (Accu-Chek Comfort 17:00 * Wound Consult CONS 06/12/25 Transmitted * Epoxy Coatings Installer CONS 06/12/25 Transmitted Consult Insulin Lantus PHA 06/12/25 In Process (Glargine) (Lantus) 10:00 Insulin Lispro PHA 06/12/25 In Process (Human) (Humalog) 11:30 Insulin Lispro PHA 06/12/25 In Process (Human) (Humalog) 11:30 Cardiac DIET 06/12/25 Transmitted Diet-2gna,Lofat,Lochol Lunch Date of Service: Jun 12, 2025 Billing Provider: ALINE HENRY MD Common Visit Codes: [id number] INP/OBS CARE(HIGH) ALINE HENRY MD Jun 12, 2025 14:10
[2025-06-12] MEDS: SODIUM CHLORIDE 0.9% 1,000 ML IV ONE (14:15)
[2025-06-12 15:15] LABS: Chloride 104 mmol/L (98-107); Sodium 139 mmol/L (136-145)
[2025-06-12 15:16] LABS: Anion Gap 13 (5-15); Carbon Dioxide 22 mmol/L (20-31)
[2025-06-12 15:17] LABS: Calcium 8.7 mg/dL (8.7-10.4); Potassium 3.4 mmol/L (3.5-5.1)
[2025-06-12 15:21] LABS: BUN/Creatinine Ratio 17.1 (10.0-20.0); Blood Urea Nitrogen 18 mg/dL (9-23); Glucose 257 mg/dL (74-106)
--- NOTE | 2025-06-12 22:51 | DVHPN2 ---
Progress Note - Dictate Date Seen: Jun 12, 2025 Medical Necessity Reason Pt with a Central, PICC or Fol: Yes The following are medically ne: Morelos Catheter Reason for morelos catheter: Strict I&O Subjective Hermes Louis is a 70 years old with a history of hypertension, diabetes, dyslipidemia, bladder cancer, the patient was admitted to the [facility] on 06/08/2025 with a chief company of altered mental status. I have seen and examined the patient, I have talked to her nurse and sitter, she keeps improving, she is oriented to person, and place, reasonable social skills Blood culture, 06/09/25: Urine culture, 06/09/2025: UDS, 06/09/2025: Cannabinoids Urinalysis, 06/08/2025: WBC: One, urine leukocyte esterase: Negative ABG, 06/08/2025: Metabolic acidosis, 06/09/2025: Metabolic acidosis WBC/HB/PLT/MCV, 06/08/2025: 26.7/13.3/329/106.8, 06/09/2025: 18.1/14.5/271/94.7, 06/11/2025: 7.5/12.6/188/88.7 PT/INR/PTT, 06/08/2025: 11.4/1.08/33.2, 06/09/2025: 12.2/1.17/125.3, 06/09/2025: 11.4/1.08/40 Na 06/08/2025: 125, 136, 06/09/2025: 140, 148, 149 K 06/08/2025: 7.2, four, 06/09/2025: 3.4, 2.7, 3.9 BUN/CR, 06/09/2025: 40/2.26, 06/09/2025: 43/2 Glucose, 06/08/2025: 1233, 835, 06/09/2025: 804, 247, 151 Lactic acid, 06/08/2025: 5.5, 4.7 HGB A1c, 06/09/2025: 10.6 TBI/AST/ALT/AP, 06/08/2025: 0.2/67/68/133 TSH, 06/09/2025: 1.04 Beta hydroxybutyric acid 06/08/2025: >4.5 vital signs Vital Sign Date Time Temp Pulse Resp B/P (MAP) Pulse Ox O2 Delivery O2 Flow Rate FiO2 06/12/25 21:00 98.4 93 18 126/68 (87) 95 98.4 06/12/25 08:00 Room Air* 0 21 Total Intake and Output 06/11/25 06/11/25 06/12/25 15:00 23:00 07:00 Intake Total 600 ml 50 ml 1000 ml Output Total 1000 ml 1250 ml Balance 600 ml -950 ml -250 ml medications Current Medications Medications Dose Ordered Sig/Elizabeth Route Start Time Stop Time Status Last Admin Dose Admin Nitroglycerin 0.4 mg Q5MINP PRN SL 06/08/25 20:00 Morphine Sulfate 2 mg Q30M PRN IV 06/08/25 20:00 Ondansetron HCl 4 mg Q4HP PRN IV 06/08/25 20:15 Enoxaparin Sodium 40 mg DAILY SC 06/10/25 10:00 06/12/25 10:46 40 MG Aspirin 81 mg DAILY PO 06/10/25 10:00 06/12/25 10:43 81 MG Pantoprazole Sodium 40 mg DAILY IV 06/10/25 10:00 06/12/25 10:43 40 MG Dextrose 50 ml UD PRN IV 06/09/25 16:15 Haloperidol Lactate 2.5 mg Q8HP PRN IM 06/09/25 21:30 06/10/25 22:24 2.5 MG Lactated Ringer's 1,000 ml @ 75 mls/hr [id number] IV 06/10/25 15:15 06/12/25 07:15 75 MLS/HR Diagnostic Test (Pha) 1 strip AC 06/11/25 17:00 06/12/25 17:00 1 STRIP Cefepime HCl 50 ml @ 12.5 mls/hr Q8H IV 06/11/25 18:00 06/12/25 18:02 12.5 MLS/HR Insulin Glargine 24 units DAILY SC 06/12/25 10:00 06/12/25 11:06 24 UNITS Insulin Human Lispro AC SC 06/12/25 11:30 06/12/25 18:07 2 UNITS Insulin Human Lispro 7 units AC SC 06/12/25 11:30 06/12/25 11:30 7 UNITS objective General: the patient is well developed and nourished. No acute distress. MENTAL STATUS: Subjective SPEECH, LANGUAGE, HIGHER CORTICAL FUNCTION: no aphasia or dysathria. CRANIAL NERVES: Pupils are equal, round and reactive. EOMs full and conjugate. Facial sensation intact in all three divisions bilaterally. Mandibular strength intact. Facial muscles symmetrical and strength intact. SENSATION: Sensation to touch and pinprick is okay MOTOR: Normal tone in the upper and lower extremity. Normal muscle bulk. No fasciculations. No abnormal movements or posturing. Muscle strength of the major groups in the extremities is 5/5. REFLEXES: Deep tendon reflexes are symmetrical. No pathological reflexes. CEREBELLAR/COORDINATION: Deferred GAIT/STATION: deferred. laboratory and microbiology Laboratory Tests 06/12/25 15:00 06/12/25 05:03 Test 06/12/25 15:00 Range/Units Serum Glucose 257 H 74-106 mg/dL Problem List Altered mental status, likely metabolic encephalopathy secondary to Diabetic ketoacidosis Metabolic acidosis Hypoglycemia Dehydration Hyponatremia, hypernatremia Fever/leukocytosis/sepsis Acute kidney failure Assessment/Plan Monitoring Supportive treatment Telemetry IV antibiotics Glucose control Haldol 2.5 mg intramuscular Q 8 hours as needed for agitation EEG Nephrology on case More recommendation per clinical course This medical document was created using an electronic medical record system with Tapit dictation system. Although this document has been carefully reviewed, there may still be some phonetic and typographical errors. These areas are purely typographical due to imperfections of the software programs, and do not reflect any compromise in the patient's medical care. Prognosis poor Dietary Evaluation Review Comments: 1) Advance to [facility] 75gm + cardiac diet as medically feasible 2) Refer [employer] for diabetes education Expected Outcomes/Goals: To meet >75% estimated needs Fu 2-3 days Plan discussed with: Other ANDRÉS THOMAS MD Jun 12, 2025 22:51
[2025-06-13] VITALS (8 sets, daily range): BP systolic 121–146; BP diastolic 31–84; PULSE 91–102; RESP 18–20; TEMP 97.6–98.6; O2SAT 94–100
--- NOTE | 2025-06-13 07:44 | ECG ---
[facility] Test Date: 2025-06-10 Test Time: 15:21:40 Pat Name: MARLEEN TURCIOS Department: Room: 0279 Gender: F Billet Examiner: MONIK BYERS : 1955 Requested By: JOSSELIN JUNG Order Number: [id number] Reading MD: Ramon Curran Measurements Intervals [place] Rate: 100 P: 45 NE: 132 QRS: 45 QRSD: 72 T: 52 QT: 456 QTc: 588 Interpretive Statements Poor data quality, interpretation may be adversely affected Sinus rhythm with occasional premature ventricular complexes ST abnormality, possible digitalis effect Prolonged QT Electronically Signed On 06-13-2025 21:33:20 PDT by Ramon Curran Please click the below link to view image of tracing.
[2025-06-13 07:49] LABS: Hematocrit 38.3 % (36.0-46.0); Hemoglobin 13.3 g/dL (12.2-16.2); Mean Corpuscular Hemoglobin 30.4 pg (28.0-32.0); Mean Corpuscular Volume 87.5 fL (80.0-100.0); Nucleated Red Blood Cells % 0.3 %
[2025-06-13 07:50] LABS: Chloride 101 mmol/L (98-107); Potassium 3.6 mmol/L (3.5-5.1); Sodium 137 mmol/L (136-145)
[2025-06-13 07:51] LABS: Anion Gap 19 (5-15)
[2025-06-13 07:52] LABS: Calcium 9.6 mg/dL (8.7-10.4)
[2025-06-13 07:56] LABS: BUN/Creatinine Ratio 17.8 (10.0-20.0); Blood Urea Nitrogen 18 mg/dL (9-23)
[2025-06-13 07:57] LABS: Carbon Dioxide 17 mmol/L (20-31); Glucose 327 mg/dL (74-106)
--- NOTE | 2025-06-13 10:16 | DVHPN2 ---
Progress Note Date Seen: Jun 13, 2025 Medical Necessity Reason Pt with a Central, PICC or Fol: Yes The following are medically ne: Morelos Catheter Reason for morelos catheter: Strict I&O Subjective Changes from previous H/P or p: No Changes Objective vital signs Vital Sign Date Time Temp Pulse Resp B/P (MAP) Pulse Ox O2 Delivery O2 Flow Rate FiO2 06/13/25 08:44 97.9 100 20 121/79 (93) 95 97.9 06/12/25 20:00 Room Air* 0 21 Total Intake and Output 06/12/25 06/12/25 06/13/25 15:00 23:00 07:00 Intake Total 50 ml 50 ml 250 ml Output Total 1150 ml 800 ml Balance 50 ml -1100 ml -550 ml medications Current Medications Medications Dose Ordered Sig/Elizabeth Route Start Time Stop Time Status Last Admin Dose Admin Nitroglycerin 0.4 mg Q5MINP PRN SL 06/08/25 20:00 Morphine Sulfate 2 mg Q30M PRN IV 06/08/25 20:00 Ondansetron HCl 4 mg Q4HP PRN IV 06/08/25 20:15 Enoxaparin Sodium 40 mg DAILY SC 06/10/25 10:00 06/12/25 10:46 40 MG Aspirin 81 mg DAILY PO 06/10/25 10:00 06/12/25 10:43 81 MG Pantoprazole Sodium 40 mg DAILY IV 06/10/25 10:00 06/12/25 10:43 40 MG Dextrose 50 ml UD PRN IV 06/09/25 16:15 Haloperidol Lactate 2.5 mg Q8HP PRN IM 06/09/25 21:30 06/10/25 22:24 2.5 MG Lactated Ringer's 1,000 ml @ 75 mls/hr [id number] IV 06/10/25 15:15 06/12/25 07:15 75 MLS/HR Diagnostic Test (Pha) 1 strip AC 06/11/25 17:00 06/13/25 06:14 1 STRIP Cefepime HCl 50 ml @ 12.5 mls/hr Q8H IV 06/11/25 18:00 06/13/25 02:18 12.5 MLS/HR Insulin Glargine 24 units DAILY SC 06/12/25 10:00 06/12/25 11:06 24 UNITS Insulin Human Lispro AC SC 06/12/25 11:30 06/13/25 06:13 8 UNITS Insulin Human Lispro 7 units AC SC 06/12/25 11:30 06/13/25 06:14 7 UNITS laboratory and microbiology Laboratory Tests 06/13/25 06:15 Test 06/13/25 06:15 Range/Units Serum Glucose 327 H 74-106 mg/dL Microbiology Date/Time Source Procedure Growth Status 06/09/25 14:40 Urine - [place] Urine Culture - Final Complete 06/09/25 13:50 Blood Blood Culture - Preliminary NO GROWTH AFTER 72 HOURS OF INCUBATION. Resulted 06/09/25 01:31 Nose MRSA Screen - Final Complete Problem List/Assessment/Plan Problem List/Assessment/Plan 70-year-old transgender female presents to the hospital with altered mental status in setting of ketoacidosis Acute kidney injury prerenal setting of volume depletion resolved Shock in the setting of diabetic ketoacidosis AMS resolved Dm2 uncontrolled now YESSI has resolved encourage po remove morelos catheter, ensure UOP post removal awake and alert glycemic control as per PCP no further renal recs, will sign off the case Plan discussed with: Patient Dietary Evaluation Review Comments: 1) Advance to [facility] 75gm + cardiac diet as medically feasible 2) Refer [employer] for diabetes education Expected Outcomes/Goals: To meet >75% estimated needs Fu 2-3 days Total Time (mins): 33 RITCHIE VELAZQUEZ MD Jun 13, 2025 10:16
[2025-06-13] MEDS ORDERED: DEXTROSE (50%) 50ML SYRG IV PRN (12:00)
--- NOTE | 2025-06-13 12:06 | DVHPN2 ---
Progress Note Date Seen: Jun 13, 2025 Medical Necessity Reason Pt with a Central, PICC or Fol: No Subjective Patient reports: No new complaints Review of Systems: HEENT:Normal, CVS:Normal, RESPIRATORY:Normal, GI:Normal, :Normal, MSK:Normal, NEURO:Normal Objective vital signs Vital Sign Date Time Temp Pulse Resp B/P (MAP) Pulse Ox O2 Delivery O2 Flow Rate FiO2 06/13/25 08:44 97.9 100 20 121/79 (93) 95 97.9 06/12/25 20:00 Room Air* 0 21 Total Intake and Output 06/12/25 06/12/25 06/13/25 15:00 23:00 07:00 Intake Total 50 ml 50 ml 250 ml Output Total 1150 ml 800 ml Balance 50 ml -1100 ml -550 ml medications Current Medications Medications Dose Ordered Sig/Elizabeth Route Start Time Stop Time Status Last Admin Dose Admin Nitroglycerin 0.4 mg Q5MINP PRN SL 06/08/25 20:00 Morphine Sulfate 2 mg Q30M PRN IV 06/08/25 20:00 Ondansetron HCl 4 mg Q4HP PRN IV 06/08/25 20:15 Enoxaparin Sodium 40 mg DAILY SC 06/10/25 10:00 06/13/25 10:34 40 MG Aspirin 81 mg DAILY PO 06/10/25 10:00 06/13/25 10:34 81 MG Pantoprazole Sodium 40 mg DAILY IV 06/10/25 10:00 06/13/25 10:33 40 MG Dextrose 50 ml UD PRN IV 06/09/25 16:15 Haloperidol Lactate 2.5 mg Q8HP PRN IM 06/09/25 21:30 06/10/25 22:24 2.5 MG Lactated Ringer's 1,000 ml @ 75 mls/hr [id number] IV 06/10/25 15:15 06/13/25 09:55 75 MLS/HR Diagnostic Test (Pha) 1 strip AC 06/11/25 17:00 06/13/25 06:14 1 STRIP Cefepime HCl 50 ml @ 12.5 mls/hr Q8H IV 06/11/25 18:00 06/13/25 10:34 12.5 MLS/HR Insulin Glargine 24 units DAILY SC 06/12/25 10:00 06/13/25 10:35 24 UNITS Insulin Human Lispro AC OK 06/12/25 11:30 06/13/25 06:13 8 UNITS Insulin Human Lispro 7 units AC OK 06/12/25 11:30 06/13/25 06:14 7 UNITS Examination: GENERAL:Normal, HEENT:Normal, NECK:Normal, LUNGS:Normal, CVS:Normal, ABDOMEN:Normal, MSK:Normal, SKIN:Normal, NEURO:Normal, :Normal laboratory and microbiology Laboratory Tests 06/13/25 06:15 Test 06/13/25 06:15 Range/Units Serum Glucose 327 H 74-106 mg/dL Microbiology Date/Time Source Procedure Growth Status 06/09/25 14:40 Urine - [place] Urine Culture - Final Complete 06/09/25 13:50 Blood Blood Culture - Preliminary NO GROWTH AFTER 72 HOURS OF INCUBATION. 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 #7 likely sepsis/pneumonia: iv cefepime, repeat xray #8 hyperlipidemia #9 chronic pain #10 nstemi ?type 2 #11 transaminitis #12 hyperkalemia/hyponatremia advance care planning- full code- time spent 19 mins Plan discussed with: Patient Dietary Evaluation Review Comments: 1) Advance to [facility] 75gm + cardiac diet as medically feasible 2) Refer [employer] for diabetes education Expected Outcomes/Goals: To meet >75% estimated needs Fu 2-3 days Date of Service: Jun 13, 2025 Billing Provider: ORQUIDEA LOPEZ MD Common Visit Codes: [id number] INP/OBS CARE(HIGH) Secondary Visit Codes: [id number] CARE PLAN 30 MINUTES ORQUIDEA LOPEZ MD Jun 13, 2025 12:05
--- NOTE | 2025-06-13 13:17 | DVH ---
INDICATION: chf TECHNIQUE: Frontal view of the chest. COMPARISON: XY CHEST PORTABLE on DOS: 06/10/25, XY CHEST XRAY 1 VIEW on DOS: 06/08/25 FINDINGS: Lines and Tubes: None Lungs: Congestion Pleura: No effusion. No pneumothorax. Cardiomediastinal contours: Cardiomegaly Bones: Unremarkable IMPRESSION: Unchanged Pulmonary vascular congestion
[2025-06-13] MEDS: InsuLIN REG 1unit/0.01ml Soln (100units/ml) SC ONE (14:28)
[2025-06-13] MEDS: ACCU-CHEK COMFORT CURVE STRIP VI SCH (17:00)
[2025-06-13] MEDS: InsuLIN REG 1unit/0.01ml Soln (100units/ml) SC SCH ×2 (18:57→20:56)
--- NOTE | 2025-06-13 22:56 | DVHPN2 ---
Progress Note - Dictate Date Seen: Jun 13, 2025 Medical Necessity Reason Pt with a Central, PICC or Fol: No Subjective Hermes Louis is a 70 years old with a history of hypertension, diabetes, dyslipidemia, bladder cancer, the patient was admitted to the [facility] on 06/08/2025 with a chief company of altered mental status. I have seen and examined the patient, I have talked to her nurse and sitter, she keeps improving, she is oriented to person, and place, she said it is 2004, reasonable social skills No new complaints Blood culture, 06/09/25: Urine culture, 06/09/2025: UDS, 06/09/2025: Cannabinoids Urinalysis, 06/08/2025: WBC: One, urine leukocyte esterase: Negative ABG, 06/08/2025: Metabolic acidosis, 06/09/2025: Metabolic acidosis WBC/HB/PLT/MCV, 06/08/2025: 26.7/13.3/329/106.8, 06/09/2025: 18.1/14.5/271/94.7, 06/11/2025: 7.5/12.6/188/88.7 PT/INR/PTT, 06/08/2025: 11.4/1.08/33.2, 06/09/2025: 12.2/1.17/125.3, 06/09/2025: 11.4/1.08/40 Na 06/08/2025: 125, 136, 06/09/2025: 140, 148, 149 K 06/08/2025: 7.2, four, 06/09/2025: 3.4, 2.7, 3.9 BUN/CR, 06/09/2025: 40/2.26, 06/09/2025: 43/2 Glucose, 06/08/2025: 1233, 835, 06/09/2025: 804, 247, 151 Lactic acid, 06/08/2025: 5.5, 4.7 HGB A1c, 06/09/2025: 10.6 TBI/AST/ALT/AP, 06/08/2025: 0.2/67/68/133 TSH, 06/09/2025: 1.04 Beta hydroxybutyric acid 06/08/2025: >4.5 vital signs Vital Sign Date Time Temp Pulse Resp B/P (MAP) Pulse Ox O2 Delivery O2 Flow Rate FiO2 06/13/25 21:00 97.6 98 18 138/31 (66) 100 97.6 06/13/25 20:00 Room Air* 0 21 Total Intake and Output 06/12/25 06/12/25 06/13/25 15:00 23:00 07:00 Intake Total 50 ml 50 ml 250 ml Output Total 1150 ml 800 ml Balance 50 ml -1100 ml -550 ml medications Current Medications Medications Dose Ordered Sig/Elizabeth Route Start Time Stop Time Status Last Admin Dose Admin Nitroglycerin 0.4 mg Q5MINP PRN SL 06/08/25 20:00 Morphine Sulfate 2 mg Q30M PRN IV 06/08/25 20:00 Ondansetron HCl 4 mg Q4HP PRN IV 06/08/25 20:15 Aspirin 81 mg DAILY PO 06/10/25 10:00 06/13/25 10:34 81 MG Lactated Ringer's 1,000 ml @ 75 mls/hr [id number] IV 06/10/25 15:15 06/13/25 09:55 75 MLS/HR Cefepime HCl 50 ml @ 12.5 mls/hr Q8H IV 06/11/25 18:00 06/13/25 10:34 12.5 MLS/HR Insulin Glargine 30 units DAILY SC 06/14/25 10:00 Diagnostic Test (Pha) 1 strip ACHS 06/13/25 17:00 06/13/25 20:57 1 STRIP Insulin Human Regular HS SC 06/13/25 22:00 06/13/25 20:56 3 UNITS Insulin Human Regular AC SC 06/13/25 17:00 06/13/25 18:57 6 UNITS Dextrose 50 ml UD PRN IV 06/13/25 12:00 Pantoprazole Sodium 40 mg DAILY@0600 PO 06/14/25 06:00 objective General: the patient is well developed and nourished. No acute distress. MENTAL STATUS: Subjective SPEECH, LANGUAGE, HIGHER CORTICAL FUNCTION: no aphasia or dysathria. CRANIAL NERVES: Pupils are equal, round and reactive. EOMs full and conjugate. Facial sensation intact in all three divisions bilaterally. Mandibular strength intact. Facial muscles symmetrical and strength intact. SENSATION: Sensation to touch and pinprick is okay MOTOR: Normal tone in the upper and lower extremity. Normal muscle bulk. No fasciculations. No abnormal movements or posturing. Muscle strength of the major groups in the extremities is 5/5. REFLEXES: Deep tendon reflexes are symmetrical. No pathological reflexes. CEREBELLAR/COORDINATION: Deferred GAIT/STATION: deferred. laboratory and microbiology Laboratory Tests 06/13/25 06:15 Test 06/13/25 06:15 Range/Units Serum Glucose 327 H 74-106 mg/dL Problem List Altered mental status, likely metabolic encephalopathy secondary to Diabetic ketoacidosis Metabolic acidosis Hypoglycemia Dehydration Hyponatremia, hypernatremia Fever/leukocytosis/sepsis Acute kidney failure Assessment/Plan Monitoring Supportive treatment Telemetry IV antibiotics Glucose control Haldol 2.5 mg intramuscular Q 8 hours as needed for agitation EEG Nephrology on case More recommendation per clinical course This medical document was created using an electronic medical record system with [employer] computerized dictation system. Although this document has been carefully reviewed, there may still be some phonetic and typographical errors. These areas are purely typographical due to imperfections of the software programs, and do not reflect any compromise in the patient's medical care. Prognosis poor Dietary Evaluation Review Comments: 1) Advance to [facility] 75gm + cardiac diet as medically feasible 2) Refer [employer] for diabetes education Expected Outcomes/Goals: To meet >75% estimated needs Fu 2-3 days Plan discussed with: Other ANDRÉS THOMAS MD Jun 13, 2025 22:56
[2025-06-14 01:00] VITALS: BP 122/68; PULSE 96; RESP 18; TEMP 97.9; O2SAT 95
[2025-06-14 05:00] VITALS: BP 135/67; PULSE 94; RESP 19; TEMP 98; O2SAT 97
[2025-06-14] MEDS: PANTOPRAZOLE 40 MG TAB PO SCH (06:20)
[2025-06-14 07:23] LABS: Anion Gap 14 (5-15); Carbon Dioxide 24 mmol/L (20-31); Chloride 104 mmol/L (98-107); Sodium 142 mmol/L (136-145)
[2025-06-14 07:25] LABS: Calcium 9.6 mg/dL (8.7-10.4)
[2025-06-14 07:29] LABS: BUN/Creatinine Ratio 16.8 (10.0-20.0); Blood Urea Nitrogen 16 mg/dL (9-23)
[2025-06-14 07:30] LABS: Magnesium 1.7 mg/dL (1.6-2.6)
[2025-06-14 07:31] LABS: Glucose 197 mg/dL (74-106); Potassium 3.2 mmol/L (3.5-5.1)
[2025-06-14 08:00] VITALS: RESP 18; O2SAT 99
[2025-06-14 09:00] VITALS: BP 140/78; PULSE 96; RESP 20; TEMP 97.4; O2SAT 96
[2025-06-14] MEDS: INSULIN LANTUS (GLARGINE) 1 /0.01ml (100units/ml) SC SCH (11:21)
--- NOTE | 2025-06-14 11:59 | DVHDS2 ---
Discharge Summary Date of Admission Jun 08, 2025 at 19:56 Date of Discharge: Jun 14, 2025 Labs/Diagnostic Data: Laboratory Results Test 06/14/25 10:42 06/14/25 06:00 06/13/25 06:15 06/11/25 05:06 POC Glucose 275 mg/dl (70-106) Sodium Level 142 mmol/L (136-145) Potassium Level 3.2 mmol/L (3.5-5.1) Chloride Level 104 mmol/L (98-107) Carbon Dioxide Level 24 mmol/L (20-31) Anion Gap 14 (5-15) Blood Urea Nitrogen 16 mg/dL (9-23) Creatinine 0.95 mg/dL (0.550-1.02) Glomerular Filtration Rate Calc 64 mL/min (>90) BUN/Creatinine Ratio 16.8 (10.0-20.0) Serum Glucose 197 mg/dL (74-106) Calcium Level 9.6 mg/dL (8.7-10.4) Magnesium Level 1.7 mg/dL (1.6-2.6) White Blood Count 6.0 10^3/uL (4.4-10.8) Red Blood Count 4.38 10^6/uL (4.0-5.20) Hemoglobin 13.3 g/dL (12.2-16.2) Hematocrit 38.3 % (36.0-46.0) Mean Corpuscular Volume 87.5 fL (80.0-100.0) Mean Corpuscular Hemoglobin 30.4 pg (28.0-32.0) Mean Corpuscular Hemoglobin Concent 34.8 g/dL (32.0-36.0) Red Cell Distribution Width 14.5 % (11.8-14.3) Platelet Count 225 10^3/uL (140-450) Mean Platelet Volume 9.8 fL (6.9-10.8) Neutrophils (%) (Auto) 55.5 % (37.0-80.0) Lymphocytes (%) (Auto) 31.9 % (10.0-50.0) Monocytes (%) (Auto) 10.0 % (0.0-12.0) Eosinophils (%) (Auto) 2.1 % (0.0-7.0) Basophils (%) (Auto) 0.5 % (0.0-2.0) Neutrophils # (Auto) 3.3 10 ^3/uL (1.6-8.6) Lymphocytes # (Auto) 1.9 10 ^3/uL (0.4-5.4) Monocytes # (Auto) 0.6 10 ^3/uL (0-1.3) Eosinophils # (Auto) 0.1 10 ^3/uL (0-0.8) Basophils # (Auto) 0 10 ^3/uL (0-0.2) Nucleated Red Blood Cells 0.3 % Phosphorus Level 2.6 mg/dL (2.4-5.1) Total Bilirubin 0.6 mg/dL (0.2-1.0) Aspartate Amino Transferase (AST) 119 U/L (13-40) Alanine Aminotransferase (ALT) 66 U/L (7-40) Alkaline Phosphatase 98 U/L (46-116) Total Protein 5.5 g/dL (5.7-8.2) Albumin 3.6 g/dL (3.2-4.8) Test 06/10/25 14:16 06/09/25 14:40 06/09/25 13:14 06/09/25 12:51 Troponin I High Sensitivity 1337 ng/L (</=34) Urine Opiates Screen Neg (NEGATIVE) Urine Fentanyl Screen Neg (NEGATIVE) Urine Barbiturates Screen Neg (NEGATIVE) Urine Phencyclidine Screen Neg (NEGATIVE) Urine Amphetamines Screen Neg (NEGATIVE) Urine Benzodiazepines Screen Neg (NEGATIVE) Urine Cocaine Screen Neg (NEGATIVE) Urine Cannabinoids Screen Pos (NEGATIVE) Blood Gas Specimen Type Arterial Blood Gas Sample Site Right radial Blood Gas Patient Temperature 37.0 Arterial Blood Date Drawn [id number] Arterial Blood pH 7.480 (7.350-7.450) Arterial Blood Partial Pressure CO2 30.9 mmHg (32.0-45.0) Arterial Blood Partial Pressure O2 83.8 mmHg (83.0-108.0) Arterial Blood HCO3 22.5 mmol/L (21.0-28.0) Arterial Blood Oxygen Saturation 95.8 % (94.0-98.0) Arterial Blood Base Excess -0.2 mmol/L (-2.0-3.0) Arterial Blood Oxyhemoglobin 95.3 % (94.0-98.0) Arterial Blood Carboxyhemoglobin 0.0 % (0.5-1.5) Arterial Blood Methemoglobin 0.5 % (0.0-1.5) Abel Test Modified Blood Gas Total Hemoglobin 12.70 g/dL (12.0-16.0) Blood Gas Liter Flow 4.50 Blood Gas Modality Nasal cannula FiO2 % 38.0 Prothrombin Time 11.4 sec (9.3-11.8) Prothrombin Time INR 1.08 (0.9-1.15) Activated Partial Thromboplast Time 48.0 SEC (24.5-34.5) Test 06/09/25 09:17 06/09/25 03:21 06/09/25 00:27 06/08/25 20:42 Thyroid Stimulating Hormone (TSH) 1.04 uIU/mL (0.55-4.78) Hemoglobin A1c 10.6 % A1C (<5.7) B-Type Natriuretic Peptide 239.89 pg/mL (0-100) Blood Gas Critical Value Read Back Yes Blood Gas Notified Whom jamel Cardozo, food service lead Blood Gas Notified Time [id number] Blood Gas Notified By jamel Avila rrt Lactic Acid Level 4.7 mmol/L (0.4-2.0) Test 06/08/25 18:40 06/08/25 17:53 Urine Color Light-yellow (Yellow) Urine Clarity Clear (Clear) Urine pH 5.0 (5.0-9.0) Urine Specific [place] 1.020 (1.001-1.035) Urine Protein Trace (Negative) Urine Ketones 3+ (Negative) Urine Blood 1+ /uL (Negative) Urine Nitrite Negative (Negative) Urine Bilirubin Negative (Negative) Urine Urobilinogen Normal mg/dL (Negative) Urine Leukocyte Esterase Negative /uL (Negative) Urine RBC 1 /hpf (0 - 4) Urine Microscopic WBC 1 /HPF (0-5) Urine Squamous Epithelial Cells Few /hpf (<5) Urine Bacteria None seen /hpf (None Seen) Urine Hyaline Casts Few /lpf (0 - 2) Urine Mucus Few (None Seen) Urine Glucose 4+ mg/dL (Normal) Differential Total Cells Counted 100.0 (100) Neutrophils % (Manual) 70 (37.0-80.0) Band Neutrophils % (Manual) 11 Lymphocytes % (Manual) 10 (10.0-50.0) Monocytes % (Manual) 9 (0-12) Eosinophils % (Manual) 0 (0-7) Basophils % (Manual) 0 (0.0-2.0) Metamyelocytes % (manual) 0 Myelocytes % (Manual) 0 Promyelocytes % (Manual) 0 Blast Cells % (Manual) 0 Reactive Lymphocytes 0 Platelet Estimate Adequate Anisocytosis (manual) Slight Macrocytosis Moderate Serum Osmolality 376 mOsm/kg (278-298) Beta-Hydroxybutyric Acid > 4.500 mmol/L (< 0.4) Other Laboratory Tests 06/14/25 06:00 06/13/25 06:15 Brief Hx & Hospital Course: see dictated note Condition at Discharge: Fair Final Diagnosis/Problems List uncontrolled dm Discharge Disposition: Home Discharge Instruct/Medications Diet: Consistent carbohydrate, Cardiac 2g Na,low cholest Activity: No Restrictions, As Tolerated Follow Up/Referral: fu with [facility] Medications: resume home meds Discharge Statement: "Patient was advised to return to the ER or call 911 if any headaches, dizziness, shortness of breath, chest pain, abdominal pain, bleeding, fevers, or worsening of medical condition. Patient was counseled about treatment plan, medications, possible side effects, patientverbalized understanding. All questions were answered to the best of my ability. This discharge took greater then 30 minutes in planning, reviewing documentation, counseling the patient, and discussing with other team members." ASSESSMENT ASSESSMENT Assessment uncontrolled dm Date of Service: Jun 14, 2025 Billing Provider: ORQUIDEA LOPEZ MD Common Visit Codes: 36619-LHB/OBS DISCH DAY >30min ORQUIDEA LOPEZ MD Jun 14, 2025 11:59
--- NOTE | 2025-06-14 12:13 | DVHDS ---
DATE OF DISCHARGE: 06/14/2025 The patient is a 70-year-old lady who was admitted with history of altered mental status and has history of diabetes, hyperlipidemia, and transgender surgery. HOSPITAL COURSE: The patient was noted to have elevated blood sugar of 1233 at admission, bicarb was less than 10, potassium was 7.2. The patient was also in acute renal failure with a creatinine of 3.1. Beta-hydroxybutyrate was positive and so were troponin levels at 984. The patient had a cervical spine CT that showed no acute fracture. Head CT done showed no acute abnormality. The patient was seen in Neurology consult by Dr. Daly. The patient was also seen in Nephrology consult by Dr. Morillo. The patient had echocardiogram done that showed ejection fraction of 60%-65%. The patient was placed on insulin drip and subsequently on Lantus and sliding-scale insulin. Blood cultures were negative and urine cultures were also negative. The patient's mental status eventually improved. She is now doing well and will be discharged home to resume her home medications and follow up with [facility] in the next one week. FINAL DIAGNOSES: * Diabetic ketoacidosis. * Encephalopathy, metabolic. * Severe metabolic acidosis. * Acute renal failure/vasomotor nephropathy. * Hypertension. * Hyperkalemia and hyponatremia. 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 * Questionable sepsis with pneumonia gram-positive and gram-negative. * Hyperlipidemia. * Chronic pain. * Non-STEMI likely type 2. * Transaminitis. Time spent in discharge planning and review of plan with the patient and nursing was 39 minutes. MD REGLA Roth/RUSSEL TID: [id number] RECEIPT: [id number]
[2025-06-14] MEDS: POTASSIUM CHL 20 Meq TABLET PO ONE (12:25)
[2025-06-14 12:38] VITALS: BP 141/72; PULSE 93; RESP 20; TEMP 97.5; O2SAT 96
[2025-06-14 12:49] VITALS: TEMP 36.4
== END 2025-06-14 15:30 | disposition home or self-care (01) | DRG 871 ==
LOC: EDBD 17:01 → ER 17:01 → OVERFLOW 19:56 → DOU IN ICU 06-09 01:24 → ICU CENTRL 06-09 03:27 → TELE-WESTW 06-11 17:43 → WEST WING 06-13 16:44
PROVIDERS: ADMIT Internal Medicine; ATTEND Internal Medicine
PROC: 05HF33Z Insertion of Infusion Device into Left Cephalic Vein, Percutaneous Approach (ICD-10-PCS; principal; 2025-06-10)
PROC: B54NZZA Ultrasonography of Left Upper Extremity Veins, Guidance (ICD-10-PCS; 2025-06-10)
DX: A41.59 Other Gram-negative sepsis (principal); E11.10 Type 2 diabetes mellitus with ketoacidosis without coma; G93.41 Metabolic encephalopathy; N17.0 Acute kidney failure with tubular necrosis; J15.69 Pneumonia due to other Gram-negative bacteria; J15.9 Unspecified bacterial pneumonia; I21.A1 Myocardial infarction type 2; R57.1 Hypovolemic shock; E87.0 Hyperosmolality and hypernatremia; E87.1 Hypo-osmolality and hyponatremia; E86.0 Dehydration; E87.6 Hypokalemia; N18.9 Chronic kidney disease, unspecified; E78.5 Hyperlipidemia, unspecified; E87.5 Hyperkalemia; R74.01 Elevation of levels of liver transaminase levels; E11.22 Type 2 diabetes mellitus with diabetic chronic kidney disease; E86.1 Hypovolemia; G89.29 Other chronic pain; F64.0 Transsexualism; I12.9 Hypertensive chronic kidney disease with stage 1 through stage 4 chronic kidney disease, or unspecified chronic kidney disease; Z88.6 Allergy status to analgesic agent; Z92.21 Personal history of antineoplastic chemotherapy; Z85.51 Personal history of malignant neoplasm of bladder; Z85.828 Personal history of other malignant neoplasm of skin; Z79.4 Long term (current) use of insulin; Z79.899 Other long term (current) drug therapy
CPT/HCPCS: 36415; 36600; 70450; 71045; 72125; 80048; 80053; 80307; 81001; 82010; 82805; 82947; 82962; 83036; 83605; 83735; 83880; 83930; 84100; 84132; 84443; 84484; 85007; 85025; 85027; 85610; 85730; 87040; 87081; 87086; 93005; 93306; 94640; 96365; 96375; 97163; 99291; G0378; J1815; J2470; J3480